=== PATIENT | male | born 1945 | race Caucasian/White ===

== ENCOUNTER 2025-06-08 07:28 | Outpatient (CLI) | payer MEDICARE, MEDICAID, SELFPAY ==
--- NOTE | ~2025-06-08 | PE_ITS ---
EXAMINATION: PET_PETPSMAST_PT DATE: 06/08/2025 10:09 INDICATION: Prostate cancer TECHNIQUE: 4.92 mCi of Illucix Ga-68([id number]) was administered i.v. Low dose computed tomog rachelle (CT) images were acquired from the base of the brain to the base of the brain to the proximal t highs for attenuation correction and anatomic localization. Positron emission tomography (PET) images were acquired in the same distribution beginning 85 minutes after injection. Images including fused PET/CT images were reconstructed in axial, coronal, and sagittal planes. Automated exposure control t [employer] was employed. The dose-length product was 841.52mGy-cm. COMPARISON: None FINDINGS: Head/neck: Typical pattern of symmetric physiologic increased activity in the lacrimal, parotid and submandibula r glands as well as along the mucosa of the nasal and oral cavities, pharynx and hypopharynx. No path ologically enlarged cervical lymphadenopathy or suspicious foci of increased uptake in the visualized head or neck. Atherosclerotic calcifications at the left carotid bulb stenting potential secondary t o carotid endarterectomy at the right carotid bulb. Chest: Mosaic attenuation with groundglass opacities consistent dependent atelectasis in the bilateral lower lungs. Small calcified right lower lobe nodule consistent with old granulomatous disease. No other s uspicious pulmonary nodules, pneumonia, pulmonary edema or pleural effusion. Heart size is normal. At herosclerotic coronary artery calcific location. No pericardial effusion. Thoracic aorta is normal in caliber. No pathologically enlarged or PSMA avid thoracic lymphadenopathy. Abdomen/pelvis/proximal thighs: Physiologic renal accumulation and excretion of activity in the kidneys, bladder and along portions o f ureters. Prostatomegaly measuring 4.6 x 2.8 cm. There is a small focus of moderate increased uptake at the right posterior peripheral zone of the prostate with maximal SUV of 9.6. Normal degree and sl ightly heterogenous pattern of increased uptake throughout the liver and spleen without radiologic co rrelate or dominant PSMA avid lesion. The gallbladder, pancreas and bilateral adrenal glands are norm al. Moderate uptake scattered throughout the bowels with typical duodenal and proximal jejunal predom inance and without radiologic correlate, also likely physiologic. No other abnormal foci of increased uptake or pathologically enlarged lymphadenopathy in the abdomen, pelvis or proximal thighs. Musculoskeletal: Moderate scattered degenerative skeletal changes. No suspicious lytic, blastic or abnormally PSMA alireza d bone lesions. IMPRESSION: 1. Small region of increased uptake in the right peripheral zone of the prostate consistent with prim richard prostate cancer. No evident metastatic disease. Reviewed, dictated and finalized at location A. IMPRESSION: 1. Small region of increased uptake in the right peripheral zone of the prostat e consistent with primary prostate cancer. No evident metastatic disease.
--- OUTSIDE RECORDS SUMMARY | 2025-06-08 07:32 | XMS_ITS ---
Author Organization [facility] Address [address] 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 :1945 A ge:79 Y S ex:Male Date:04/06/2025 Address:[facility] [address] [facility] [place], [id number] Subjective: * Chief Complaints: * * Medical History: Objective: * Vitals: Assessment: Plan: * Treatment: * Billing Information: * Visit Code: * Procedure Codes: * Electronic signature of JAIME MCGINNIS MD on 06/08/2025 at 07:32 AM CDT Sign off status: Pending * Provider: Lisa Mcginnis M.D. Date: 04/06/2025 Generated for Dre hannah/Cameron/Catalina on: 06/08/2025 07:32 AM CDT
--- OUTSIDE RECORDS SUMMARY | 2025-06-08 07:32 | XMS_ITS | Clinical Summary ---
Author Organization [facility] Address [address] [place] [address] Care Team Providers Care Cylinder Tester Name Role Phone Tu Mcginnis MD Primary Care Provider Allergies No known active allergies Medications BD INSULIN SYRINGE U/F 31G X 04/09 1 ML Misc Inject 1 Syringe into the skin 2 (two) times daily. 0 Active Semaglutide (OZEMPIC, 1 MG/DOSE, SC) Inject 2 mg into the skin once a week. Unsure of Dose. Takes 1x weekly on Sundays. Active insulin glargine (LANTUS) 100 UNIT/ML injection (PEN) Inject 63 Units into the skin every morning. 4 Active tamsulosin (FLOMAX) 0.4 MG Cap Take 1 capsule (0.4 mg total) by mouth daily. 4 Active clopidogrel (PLAVIX) 75 MG tablet Take 1 tablet (75 mg total) by mouth daily. 4 11/12/20 25 Active atorvastatin (LIPITOR) 80 MG tablet Take 1 tablet (80 mg total) by mouth nightly at bedtime. 4 Active amLODIPine (NORVASC) 10 MG tablet Take 1 tablet (10 mg total) by mouth daily. 5 Active traZODone (DESYREL) 50 MG tablet Take 1 tablet (50 mg total) by mouth nightly at bedtime. 4 Active bictegravir-emt ricitabine-teno fovir (BIKTARVY) 50-200-25 MG tablet Take 1 tablet by mouth daily. 4 Active gabapentin (NEURONTIN) 300 MG capsule Take 1 capsule (300 mg total) by mouth 3 (three) times daily. 4 Active aspirin 81 MG chewable tablet Chew 1 tablet (81 mg total) by mouth daily. Active ARIPiprazole (ABILIFY) 2 MG tablet Take 1 tablet (2 mg total) by mouth daily. 5 Active Continuous Glucose Sensor (DEXCOM G7 SENSOR) Misc 5 Active FLUoxetine (PROZAC) 20 MG capsule Take 3 capsules (60 mg total) by mouth. 5 Active HYDROcodone-angel taminophen (NORCO) 5-325 MG tabletIndicatio ns:Acute Pain < 7 Day Supply Take 1 tablet by mouth every 6 (six) hours as needed. Indications: Acute Pain < 7 Day Supply 15 tablet 5 Active lidocaine (LIDODERM) 5 %Indications:Ce rvical strain, acute, initial encounter Place 1 patch onto the skin daily for 30 days. Remove & Discard patch within 12 hours or as directed by MD 30 patch 5 06/09/20 25 Active polyethylene glycol (GLYCOLAX) packet Take 240 mLs (17 g total) by mouth daily for 7 days. Dissolve powder in 240 mL water 7 each 5 05/13/20 25 cyclobenzaprine (FLEXERIL) 10 MG tablet Take 1 tablet (10 mg total) by mouth 3 (three) times daily as needed. 15 tablet 5 05/15/20 25 Active Problems Problem Noted Date Diagnosed Date AMS (altered mental status) 11/10/2023 Acute metabolic encephalopathy 01/18/2021 History of melanoma 04/23/2017 History of stroke without residual deficits 02/24 Essential hypertension 07/04/2015 Hyperlipidemia associated wi th type 2 diabetes mellitus ([facility]) 12/07/2011 Major depressive disorder, single episode, moder ate 09/26/2007 Type 2 diabetes mellitus wit h hyperglycemia, with long-term current use of insulin ([facility]) 01/13/2007 Asymptomatic varicose veins 12/05/2006 Osteoarthrosis 12/05/2006 Hypertension Stroke ([facility]) Overview (01/19/2021): no residual Hyperlipidemia MDD (major depressive disorder) Encounters Date Type Department Care Team Description 05/10/2025 7:32 PM CDT - 05/10/2025 9:10 PM CDT Emergency [facility] [place] [address] Ketan Caro MD Shoulder Pain Discharge Disposition: Home or Self Care (Routine Discharge) 05/10/2025 Travel 05/06/2025 4:15 PM CDT - 05/06/2025 5:18 PM CDT [place] [address] Sofía Garcia MD TRANSRECTAL ULTRASOUND GUIDED FUSION PROSTATE BIOPSY 05/06/2025 3:57 PM CDT Anesthesia [place] [address] Jenaro Wagner MD Jackson, Samantha Rae, FNP 05/06/2025 1:04 PM CDT - 05/06/2025 5:35 PM CDT Hospital Encounter [facility] [address] Sofía Garcia MD Discharge Disposition: Home or Self Care (Routine Discharge) 05/06/2025 12:25 PM CDT - 05/06/2025 1:03 PM CDT Hospital Encounter [facility] [address] Sofía Garcia MD Discharge Disposition: Home or Self Care (Routine Discharge) 05/06/2025 Travel 05/06/2025 Prep for Procedure [place] [address] Faisal Lara FNP 04/28/2025 [employer] Message Enc [facility] Pre-Admission Testing [address] [place] [address] [place], [facility] Provider Please call us from Last 3 Months Social History Tobacco Use Types Packs/Day Years Used Date Smoking Tobacco: Former Cigarettes Smokeless Tobacco: Never Tobacco Cessation:Counseling Given: Not Answered Alcohol Use Standard Drinks/Week Comments Not Currently 0 (1 standard drink = 0.6 oz pur e alcohol) rarely [facility] Utilities Answer Date Recorded In the past 12 months has th e electric, gas, oil, or water company threatened to shut off services in your home? No 11/10/2023 Humiliation, Afraid, Rape, and Kick questionnair e Answer Date Recorded Within the last year, have y ou been afraid of your partner or ex-partner? No 11/10/2023 Within the last year, have y ou been humiliated or emotionally abused in other ways by your partner or ex-partner? No Within the last year, have y ou been kicked, hit, slapped, or otherwise physically hurt by your partner or ex-partner? No 11/10/2023 Within the last year, have y ou been raped or forced to have any kind of sexual activity by your partner or ex-partner? No 11/10/2023 Overall Financial Resource Strain (CARDIA) Answe r Date Recorded How hard is it for you to pa y for the very basics like food, housing, medical care, and heating? Not hard at all 11/10/2023 Hunger Vital Sign Answer Date Recorded Within the past 12 months, y ou worried that your food would run out before you got the money to buy more. Never true 11/10/20 Within the past 12 months, t he food you bought just didn't last and you didn't have money to get more. Never true 11/10/2023 PRAPARE - Transportation Answer Date Re corded In the past 12 months, has l ack of transportation kept you from medical appointments or from getting medications? No 10/25 In the past 12 months, has l ack of transportation kept you from meetings, work, or from getting things needed for daily living? No 11/10/2023 Housing Stability Vital Sign Answer Cornelio e Recorded In the last 12 months, was t here a time when you were not able to pay the mortgage or rent on time? No 11/10/2023 In the last 12 months, how many places have you lived? 1 11/10/2023 In the last 12 months, was t here a time when you did not have a steady place to sleep or slept in a half-way (including now)? No 11/10/2023 Sex and Gender Information Value Date Recorded Sex Assigned at Male 05/06/2025 1:00 PM CDT Legal Sex Male 4:44 PM CDT Gender Identity Not on file Sexual Orientation Not on file Last Filed Vital Signs Vital Sign Reading Time Taken Comments Blood Pressure 146/81 05/10/2025 6:46 PM CDT Pulse 96 05/10/2025 6:46 PM CDT Temperature 36.8 C (98.3 F) 05/10/2025 6:46 PM CDT Respiratory Rate 16 05/10/2025 6:46 PM CDT Oxygen Saturation 97% 05/10/2025 6:46 PM CDT Inhaled Oxygen Concentration - - Weight 79.4 kg (175 lb) 05/10/2025 6:46 PM CDT Height 172.7 cm (5' 8) 05/10/2025 6:46 PM CDT Body Mass Index 26.61 05/10/2025 6:46 PM CDT Plan of Treatment Health Maintenance Due Date Last Done Comments Kidney Health Evaluation 1945 Diabetes: Retinopathy Eye Exam 1965 Zoster Vaccines (1 of 2) 1997 DTaP, Tdap and Td Vaccines (1 - Tdap) 03/23/2007 03/22/2007 Annual Medicare Wellness Visit 2012 RSV Immunization or 60+ Years (1 - 1-dose 75+ series) 2022 COVID-19 Vaccine ( - season) 2024 Hemoglobin A1C 08/02/2024 01/31/2024, 10/25, 08/14/2022, Additional history exists Lipid Panel 11/09/2024 11/09/2023, 07/27, 01/26/2021 Pneumococcal Vaccine: 50+ Years Completed 02/28/2016, 11/17/2013 Hepatitis C Completed 09/12/2021 Meningococcal B Vaccine Aged Out No l onger eligible based on patient's age to complete this topic Meningococcal Vaccine Aged Out No lashonda yohan eligible based on patient's age to complete this topic RSV Immunizations Under 20 Months Aged Out No longer eligible based on patient's age to complete this topic Goals Goal Patient Goal Type Associated Problems Recent Progress Patient-Stated? Author Health - patient able to perform ADLs independently General Marie Jama, biology specimen technician Procedure Name Priority Date/Time Associated Diagnosis Comments XR SHOULDER LT MIN 2V STAT 05/10/2025 8:12 PM CDT XR CERV SPINE CLEAR 3V STAT 05/10/2025 8:12 PM CDT POCT GLUCOSE - DOCKED DEVICE Routine 05/06/2025 4:42 PM CDT POCT GLUCOSE - DOCKED DEVICE Routine 05/06/2025 4:29 PM CDT BIOPSY OF PROSTATE,NEEDLE/PUN CH 05/06/2025 3:57 PM CDT ELEVATED PROSTATE SPECIFIC ANTIGEN, LESION OF BLADDER R97.20, N32.9 Case Notes SCHED BY FAX 04/23/2025 [facility] PHONE ASSESS Special Needs [facility] # [id number] FAX ORDER DR NEEDS 30 MINUTES POCT GLUCOSE - DOCKED DEVICE Routine 05/06/2025 2:03 PM CDT ECG 12-LEAD STAT 05/06/2025 1:37 PM CDT Preop examination BASIC METABOLIC PANEL STAT 05/06/2025 1:14 PM CDT Preop examination CBC W/DIFF AUTOMATED STAT 05/06/2025 1:14 PM CDT Preop examination HC URINALYSIS AUTO W/O MICRO STAT 05/06/2025 1:10 PM CDT Preop examination Elevated PSA Lesion of bladder PATHOLOGY Routine 05/06/2025 12:00 AM CDT LIPID PANEL Routine 11/09/2023 9:00 PM PIPE PULLER HEMOGLOBIN, GLYCOSYLATED Routine 11/09/2023 9:00 PM PIPE PULLER from Last 3 Months or Most Recently Relevant to Health Maintenance Results * XR C-SPINE CLEAR 3V (05/10/2025 8:12 PM CDT) Anatomical Region Laterality Modality Spine Radiographic Rowena ging 05/10/2025 8:17 PM CDT Impressions 05/10/2025 8:20 PM CDT IMPRESSION: 1. No acute abnormality identified. 2. Degenerative changes as described. 3. Incomplete visualization C7 vertebra. Ordered By: KETAN CARO Interpreted By: Deandre Elizalde MD, 05/10/2025 8:17 PM Narrative 05/10/2025 8:[address] [address] Examination: XR CERV SPINE CLEAR 3V Exam time: 05/10/2025 7:47 PM Clinical history: Pain Comparison: No prior exam Technique: AP, lateral, and odontoid views Findings: No evidence of prevertebral soft tissue swelling. Odontoid process is not well visualized on the odontoid view, although, appears unremarkable on the lateral view. Occiput C1 and C1-2 relationships appear unremarkable. There is minimal anterolisthesis of C4 on C5. Mild to moderate decrease intervertebral disc height C5-6 level with moderate anterior and posterior vertebral body endplate spurring. C7 vertebra is partially visualized secondary to shoulder attenuation. C7-T1 relationship appears unremarkable on the AP view, although, C7-T1 relationship is not visualized on lateral view secondary to shoulder attenuation. If further imaging evaluation is desired, CT could be considered. Carotid vascular stent is visualized on the right. No evidence of fracture or acute osseous abnormality on the visualized cervical spine. Procedure Note Deandre Elizalde MD - 05/10/2025 [facility] [address] [place], [place] [address] Examination: XR CERV SPINE CLEAR 3V Exam time: 05/10/2025 7:47 PM Clinical history: Pain Comparison: No prior exam Technique: AP, lateral, and odontoid views Findings: No evidence of prevertebral soft tissue swelling. Odontoid process is not well visualized on the odontoid view, although,appears unremarkable on the lateral view. Occiput C1 and C1-2relationships appear unremarkable. There is minimal anterolisthesis of C4 on C5. Mild to moderate decrease intervertebral disc height C5-6 level withmoderate anterior and posterior vertebral body endplate spurring. C7 vertebra is partially visualized secondary to shoulder attenuation.C7-T1 relationship appears unremarkable on the AP view, although, [id number] is not visualized on lateral view secondary to shoulderattenuation. If further imaging evaluation is desired, CT could beconsidered. Carotid vascular stent is visualized on the right. No evidence of fracture or acute osseous abnormality on the visualizedcervical spine. IMPRESSION: 1. No acute abnormality identified. 2. Degenerative changes as described. 3. Incomplete visualization C7 vertebra. Ordered By: KETAN CARO Interpreted By: Deandre Elizalde MD, 05/10/2025 8:17 PM us Ketan Caro MD GENERAL IMAGING Final Result * XR SHOULDER LT MIN 2V (05/10/2025 8:12 PM CDT) Anatomical Region Laterality Modality Shoulder Radiographic Rowena ging 05/10/2025 8:14 PM CDT Impressions 05/10/2025 8:15 PM CDT IMPRESSION: No radiographic abnormality. Ordered By: KETAN CARO Interpreted By: Deandre Elizalde MD, 05/10/2025 8:14 PM Narrative 05/10/2025 8:15 PM CDT [facility] [address] [place], [place] [address] Examination: XR SHOULDER LT MIN 2V Exam time: 05/10/2025 7:47 PM Clinical history: Pain Comparison: No prior exam Technique: 2 views Findings: Glenohumeral and acromioclavicular joint relationships appear unremarkable. No evidence of significant degenerative change. No evidence of fracture or acute osseous abnormality. No evidence of abnormal soft tissue densities. Procedure Note Deandre Elizalde MD - 05/10/2025 [facility] [address] [place], [place] [address] Examination: XR SHOULDER LT MIN 2V Exam time: 05/10/2025 7:47 PM Clinical history: Pain Comparison: No prior exam Technique: 2 views Findings: Glenohumeral and acromioclavicular joint relationships appearunremarkable. No evidence of significant degenerative change. No evidenceof fracture or acute osseous abnormality. No evidence of abnormal softtissue densities. IMPRESSION: No radiographic abnormality. Ordered By: KETAN CARO Interpreted By: Deandre Elizalde MD, 05/10/2025 8:14 PM us Ketan Caro MD GENERAL IMAGING Final Result * (ABNORMAL) POCT glucose (05/06/2025 4:42 PM CDT) Only the most recent of3 resultswithin the time period is included. GLUCOSE POC 211(H) 70 - 99 mg/dL 05/06/2025 4:44 PM CDT [facility] 05/06/2025 4:42 PM CDT us Sofía Garcia MD POCT ORDERABLES - DEVIC E Final Result [facility] [address] [place] [address], * ECG 12 lead (05/06/2025 1:37 PM CDT) 05/06/2025 1:[address] [facility] ([facility] - 05/06/2025 8:[address] 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: PATRICANG : 1945 Requested By: FAISAL LARA Order Number: [id number] Reading CORI Mason Measurements Intervals Xenia Rate: 66 P: 80 OH: 183 QRS: 21 QRSD: 93 T: 66 QT: 388 QTc: 407 Interpretive Statements SINUS RHYTHM Compared to ECG 11/09/2023 20:56:13 T-wave abnormality no longer present Faisal Lara BALLAST REGULATOR OPERATOR ECG ORDERABLES Final R esult [facility] * (ABNORMAL) BASIC METABOLIC PANEL (05/06/2025 1:14 PM CDT) [facility] GLUCOSE 78 70 - 99 MG/DL 05/06/2025 1:56 PM CDT [facility] BUN 23(H) 7 - 18 MG/DL 05/06/2025 1:56 PM CDT [facility] CREATININE S/P/B 1.40(H) 0.7 - 1.3 MG/DL 05/06/2025 1:56 PM CDT [facility] SODIUM S/P/B 141 136 - 145 MMOL/L 05/06/2025 1:56 PM CDT [facility] POTASSIUM S/P/B 4.0 3.5 - 5.1 MMOL/L 05/06/2025 1:56 PM CDT [facility] CHLORIDE S/P/B 108 97 - 115 MMOL/L 05/06/2025 1:56 PM CDT [facility] CO2 28.0 21 - 32 MMOL/L 05/06/2025 1:56 PM T [facility] CALCIUM S/P/B 9.5 8.5 - 10.1 MG/DL 05/06/2025 1:56 PM CDT [facility] ANION GAP 5.0 2 - 10 MMOL/L 05/06/2025 1:56 PM CDT [facility] BUN CREATININE RATIO 16.4 6 - 26 05/06/2025 1:56 PM T [facility] GFR ESTIMATE 52(L) >90 ML/MIN/1.7 3 M2 05/06/2025 1:56 PM T [facility] Comment: NOTE: eGFR is not calculated for patients <18 years of age or gender unknown. This is an estimated GFR calculation using the new CKD EPI creatinine equation without race and so does not require a correction factor for race. This estimated GFR should not be used for calculating drug doses. 05/06/2025 1:14 PM CDT Faisal Lara BALLAST REGULATOR OPERATOR LABORATORY Final R esult [facility] [address] [place] [address], * (ABNORMAL) CBC W/DIFF AUTOMATED (05/06/2025 1:14 PM CDT) WBC 9.23 4.5 - 11.0 x10'3/uL 05/06/2025 1:34 PM CDT [facility] RBC 4.41(L) 4.70 - 6.10 x10'6/uL 05/06/2025 1:34 PM CDT [facility] HGB 14.2 14.0 - 18.0 G/DL 05/06/2025 1:34 PM CDT [facility] HCT 41.9(L) 43.0 - 54.0 % 05/06/2025 1:34 PM CDT [facility] MCV 95.0(H) 80.0 - 94.0 FL 05/06/2025 1:34 PM CDT [facility] MCH 32.2(H) 27.0 - 31.0 PG 05/06/2025 1:34 PM CDT [facility] MCHC 33.9 32.0 - 36.0 G/DL 05/06/2025 1:34 PM CDT [facility] RDW 13.2 11.5 - 14.5 % 05/06/2025 1:34 PM CDT [facility] PLT 181 130 - 400 x10'3/uL 05/06/2025 1:34 PM CDT [facility] MPV 11.3 9.3 - 12.2 FL 05/06/2025 1:34 PM CDT [facility] DIFFERENTIAL TYPE AUTOMATED DIFFERENTIAL 05/06/2025 1:34 PM CDT [facility] NEUTROPHILS % 55.9 % 05/06/2025 1:34 PM CDT [facility] LYMPHOCYTES % 29.0 % 05/06/2025 1:34 PM CDT [facility] MONOCYTES % 10.0 % 05/06/2025 1:34 PM CDT [facility] EOSINOPHILS 4.3 % 05/06/2025 1:34 PM CDT [facility] BASOPHILS 0.5 % 05/06/2025 1:34 PM CDT [facility] IMMATURE GRANS % 0.3 % 05/06/20 1:34 PM CDT [facility] ABS. NEUTROPHILS 5.15 1.80 - 7.70 x10'3/uL 05/06/2025 1:34 PM CDT [facility] ABS. LYMPHOCYTES 2.68 1.00 - 4.80 x10'3/uL 05/06/2025 1:34 PM CDT [facility] ABS. MONOCYTES 0.92(H) 0.30 - 0.82 x10'3/uL 05/06/2025 1:34 PM CDT [facility] ABS. EOSINOPHILS 0.40 0.04 - 0.54 x10'3/uL 05/06/2025 1:34 PM CDT [facility] ABS. BASOPHILS 0.05 0.01 - 0.08 x10'3/uL 05/06/2025 1:34 PM CDT [facility] ABS. IMMATURE GRANULOCYTES 0.03 0.00 - 0.49 x10'3/uL 05/06/2025 1:34 PM CDT [facility] 05/06/2025 1:14 PM CDT Faisal Lara BALLAST REGULATOR OPERATOR LABORATORY Final R esult [facility] [address] [place] [address], * (ABNORMAL) URINALYSIS (05/06/2025 1:10 PM CDT) SPECIMEN TYPE URINE CLEAN CATCH 05/06/2025 1:04 PM CDT [facility] COLOR (U) YELLOW 05/06/2025 1:37 PM CDT [facility] TRANSPARENCY CLEAR 05/06/2025 1:37 PM CDT [facility] SPECIFIC GRAVITY (U) 1.019 1.001 - 1.030 05/06/2025 1:37 PM CDT [facility] U PH 6.0 5.0 - 9.0 05/06/2025 1:37 PM CDT [facility] LEUKOCYTES (U) NEGATIVE NEGATIVE 05/06/2025 1:37 PM CDT [facility] NITRITES NEGATIVE NEGATIVE 05/06/2025 1:37 PM CDT [facility] PROTEIN RANDOM (U) NEGATIVE <30 MG/DL 05/06/2025 1:37 PM CDT [facility] GLUCOSE (U) 200(A) NORMAL MG/DL 05/06/2025 1:37 PM CDT [facility] KETONES MG/DL (U) NEGATIVE NEGATIVE MG/DL 05/06/2025 1:37 PM CDT [facility] UROBILINOGEN NORMAL NORMAL MG/DL 05/06/2025 1:37 PM CDT [facility] BILIRUBIN (U) NEGATIVE NEGATIVE MG/DL 05/06/2025 1:37 PM CDT [facility] BLOOD (U) NEGATIVE NEGATIVE 05/06/2025 1:37 PM CDT [facility] URINE SPECIMEN OBTAINED BY CLEAN CATCH PROCEDURE / Unknown 05/06/2025 1:10 PM CDT Sofía Garcia MD URINE ORDERABLES Final Result [facility] [address] [place] [address], * Pathology (05/06/2025 12:00 AM CDT) PATHOLOGY [facility] Department of Laboratory Medicine [address] [place] [id number] , extension [phone] Pathology Report Surgical Pathology Report Name: ELDER SACNHEZ Specimen #: [id number] Age: 2 1945 (Age: 79) Location: [facility] Sex: M Procedure Date: 05/06/2025 Hospital #: [id number] Date Received: 05/07/2025 Date Reported: 05/11/2025 Provider: SOFÍA GARCIA MD Source: A: Prostate, CHAI #1, needle biopsy B: Prostate, right lateral base, needle biopsy C: Prostate, right medial base, needle biopsy D: Prostate, right lateral mid, needle biopsy E: Prostate, right medial mid, needle biopsy F: Prostate, right lateral apex, needle biopsy G: Prostate, right medial apex, needle biopsy H: Prostate, left lateral base, needle biopsy I: Prostate, left medial base, needle biopsy J: Prostate, left lateral mid, needle biopsy K: Prostate, left medial mid, needle biopsy L: Prostate, left lateral apex, needle biopsy M: Prostate, left medial apex, needle biopsy Clinical History: Elevated PSA and lesion of bladder. FINAL DIAGNOSIS: A. 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 B. Prostate, right lateral base, core biopsies: - Acinar adenocarcinoma, grade group 2 (Netta score 3+4=7, with 30% pattern 4) involving 1 of 2 cores and 10% of tissue submitted. - See comment. C. Prostate, right medial base, core biopsy: - Benign prostatic parenchyma. D. Prostate, right lateral mid, core biopsy: - Acinar adenocarcinoma, grade group 3 (Republic score 4+3=7, with 70% pattern 4) involving 30% of a single core. E. Prostate, right medial mid, core biopsy: - Benign prostatic parenchyma. F. Prostate, right lateral apex, core biopsy: - Benign prostatic parenchyma. G. Prostate, right medial apex, core biopsy: - Benign prostatic parenchyma. H. Prostate, left lateral base, core biopsy: - Benign prostatic parenchyma. I. Prostate, left medial base, core biopsy: - Benign prostatic parenchyma. J. Prostate, left lateral mid, core biopsy: - Benign prostatic parenchyma. K. Prostate, left medial mid, core biopsy: - Benign prostatic parenchyma. L. Prostate, left lateral apex, core biopsy: - Benign prostatic parenchyma. M. Prostate, left medial apex, core biopsy: - Benign prostatic parenchyma. Diagnosis Comment: Immunohistochemical triple stain for AMACR/high molecular keratin/p63 was performed on specimen B to confirm the diagnosis. The atypical glands of interest show AMACR expression and lack basal cells by high molecular keratin/p63 in keeping with acinar adenocarcinoma. Gross Description: A. Received in formalin, labeled with a patient label and as CHAI #1 are 4 less than 0.1 cm in diameter delicate white-davis tissue cores that range from 0.5 to 0.8 cm in length. The specimen is entirely submitted in cassette A1. B. Received in formalin, labeled with a patient label and as right lateral base are 2 less than 0.1 cm in diameter delicate white-davis tissue cores each 0.7 cm in length. The specimen is entirely submitted in cassette B1. C. Received in formalin, labeled with a patient label and as right medial base is a single less than 0.1 cm in diameter delicate white-davis tissue core that is 1.5 cm in length. The specimen is entirely submitted in cassette C1. D. Received in formalin, labeled with a patient label and as right lateral mid is a single less than 0.1 cm in diameter delicate white-davis tissue core that has a length of 1.5 cm. The specimen is entirely submitted in cassette D1. E. Received in formalin, labeled with a patient label and as right medial mid is a single less than 0.1 cm in diameter delicate white-davis tissue core that has a length of 1.3 cm. The specimen is entirely submitted in cassette E1. F. Received in formalin, labeled with a patient label and as right lateral apex is a single less than 0.1 cm in diameter delicate white-davis tissue core that has a length of 1.0 cm. The specimen is entirely submitted in cassette F1. G. Received in formalin, labeled with a patient label and as right medial apex are 2 less than 0.1 cm in diameter delicate white-davis tissue cores 1.0 and 0.4 cm in length. The specimen is entirely submitted in cassette G1. H. Received in formalin, labeled with a patient label and as left lateral base are 3 less than 0.1 cm in diameter delicate white-davis tissue cores that range from 0.3 to 0.7 cm in length. The specimen is entirely submitted in cassette H1. I. Received in formalin, labeled with a patient label and as left medial base are 2 less than 0.1 cm in diameter delicate white-davis tissue cores 0.3 and 1.0 cm in length. The specimen is entirely submitted in cassette I1. J. Received in formalin, labeled with a patient label and as left lateral mid are 2 less than 0.1 cm in diameter delicate white-davis tissue cores 0.3 and 1.3 cm in length. The specimen is entirely submitted in cassette J1. K. Received in formalin, labeled with a patient label and as left medial mid is a single less than 0.1 cm in diameter delicate white-davis tissue core that has a length of 1.7 cm. The specimen is entirely submitted in cassette K1. L. Received in formalin, labeled with a patient label and as left lateral apex are 2 less than 0.1 cm in diameter delicate white-davis tissue cores 0.5 and 0.7 cm in length. The specimen is entirely submitted in cassette L1. M. Received in formalin, labeled with a patient label and as left medial apex are 2 less than 0.1 cm in diameter delicate white-davis tissue cores 0.3 and 1.0 cm in length. The specimen is entirely submitted in cassette M1. Gross examination (when applicable), interpretation, and sign out were performed at [facility], [address] [place] [address]. All immunohistochemical and histochemical tests were developed by and performed at [facility], [address] [place] [address]. All tests reported here have not been cleared or approved by the U.S. Food and Drug Administration (FDA). This laboratory is regulated under CLIA as qualified to perform high-complexity testing. These tests are used for clinical purposes. They should not be regarded as investigational or for research. Positive and negative controls show appropriate reactivity. Electronically Signed Out TALON LANIER MD [facility] TISSUE PROSTATE / Unknown 1:07 PM CDT Tissue specimen (specimen) PROSTATE / Unknown 05/06/2025 1:07 PM CDT Tissue specimen (specimen) PROSTATE / Unknown 05/06/2025 1:07 PM CDT Tissue specimen (specimen) PROSTATE / Unknown 05/06/2025 1:07 PM CDT Tissue specimen (specimen) PROSTATE / Unknown 05/06/2025 1:07 PM CDT Tissue specimen (specimen) PROSTATE / Unknown 05/06/2025 1:07 PM CDT Tissue specimen (specimen) PROSTATE / Unknown 05/06/2025 1:07 PM CDT Tissue specimen (specimen) PROSTATE / Unknown 05/06/2025 1:07 PM CDT Tissue specimen (specimen) PROSTATE / Unknown 05/06/2025 1:07 PM CDT Tissue specimen (specimen) PROSTATE / Unknown 05/06/2025 1:07 PM CDT Tissue specimen (specimen) PROSTATE / Unknown 05/06/2025 1:07 PM CDT Tissue specimen (specimen) PROSTATE / Unknown 05/06/2025 1:07 PM CDT Tissue specimen (specimen) PROSTATE / Unknown 05/06/2025 1:07 PM CDT us Sofía Garcia MD PATHOLOGY/CYTOLOGY JOEY MATA Final Result [facility] [address] [place] [address], [place] [phone] [id number] * (ABNORMAL) HEMOGLOBIN, GLYCATED (11/09/2023 9:00 PM PIPE PULLER) HGB A1C 8.8(H) <5.7 % 11/10/2023 1:33 AM [facility] Comment: ADA GUIDELINES 2010 5.7 TO 6.4% INCREASED RISK OF DIABETES > OR = 6.5% CONSISTENT WITH DIABETES ESTIMATED AVG GLUCOSE 206 mg/dL 11/10/2023 1:33 AM [facility] 11/09/2023 9:00 PM PIPE PULLER Fiona Gilmore DO LABORATORY Final Result [facility] [address] [place] [address], * (ABNORMAL) LIPID PANEL (11/09/2023 9:00 PM PIPE PULLER) CHOLESTEROL 161 <200 MG/DL 11/10/2023 1:24 AM [facility] TRIGLYCERIDES 101 <150 MG/DL 11/10/2023 1:24 AM [facility] HDL 38(L) >40.0 MG/DL 11/10/2023 1:24 AM [facility] LDL (CALCULATED) 103(H) <100 MG/DL 11/10/2023 1:24 AM [facility] NON HDL CHOLESTEROL 123 <130 MG/DL 11/10/2023 1:24 AM [facility] CHOL/HDL RATIO 4.2 0.0 - 4.5 11/10/2023 1:24 AM [facility] VLDL CALCULATION 20 5 - 55 MG/DL 11/10/2023 1:24 AM [facility] LIPID INTERPRETATION 11/10/2023 1:24 AM [facility]IPE [facility] Comment: NIH CONCENSUS REPORT RECOMMENDATIONS: ADULT CHILD LOW RISK: CHOLESTEROL <200 <170 TRIGLYCERIDE <150 --- HDL >=60 --- LDL <100 <110 BORDERLINE: CHOLESTEROL 200-239 170-199 TRIGLYCERIDE 150-199 --- HDL 40-59 --- LDL 100-159 110-129 HIGH RISK: CHOLESTEROL >=240 >=200 TRIGLYCERIDE >=200 --- HDL <40 --- LDL >=160 >=130 11/09/2023 9:00 PM PIPE PULLER Fiona Gilmore DO LABORATORY Final Result [facility] [address] [place] [address], from Last 3 Months or Most Recently Relevant to Health Maintenance Insurance AETNA Advance Directives * Full Code (Latest Code Status on File) Date Activated Date Inactivated Comments 11/10/2023 1:44 PM 11/11/2023 6:30 PM * Full Code Date Activated Date Inactivated Comments 01/18/2021 2:35 PM 01/20/2021 2:46 PM Care Teams Cylinder Tester Relationship Specialty Start Date End Date Tu Mcginnis MD [address] [address] PCP - General Internal Medicine - Infectious Disease 05/06/25
--- OUTSIDE RECORDS SUMMARY | 2025-06-08 07:32 | XMS_ITS ---
Author Organization [facility] Address [address] [address] Care Team Providers Care Biologist Aide Name Role Phone Provider, Outside Primary Care Provider Enrollments Status:Enrolled Start date:10/17/2023 Related service episodes:Food Pantry Service () Continued Care and Services Coordination
--- OUTSIDE RECORDS SUMMARY | 2025-06-08 07:32 | XMS_ITS | Clinical Summary ---
Author Organization [facility] Address [address] [place] [address] Care Team Providers Care Fourth Grade Teacher Name Role Phone Provider, Outside Primary Care Provider [phone] Source Comments PLEASE NOTE, if this patient is a minor, it may be UNLAWFUL to discuss sensitive information that is contained in these records (such as FAMILY PLANNING, MENTAL HEALTH or SUBSTANCE ABUSE) with the minor patient's parent or other person without the patient's specific authorization.[facility] Allergies No known active allergies Medications tadalafiL (CIALIS) 20 mg tablet Take 1 tablet by mouth once daily as needed for erectile dysfunction 6 Tablet 3 2 8:20 AM PST 08/14/20 22 Active testosterone (TESTIM) 50 mg/5 gram (1 %) gel Place onto the skin 08/14/20 22 Active loperamide (IMODIUM A-D) 2 mg capsule Take 1 capsule by mouth 4 (four) times daily as needed for diarrhea 30 Capsule 1 2 12:58 PM PDT 08/23/20 22 Active hydrOXYzine HCL (ATARAX) 25 mg tablet TAKE ONE TABLET BY MOUTH TWICE DAILY 60 Tablet 3 3 9:19 AM PST 10/11/20 22 Active tadalafiL (CIALIS) 5 mg tablet Take 1 tablet by mouth once daily as needed 30 Tablet 3 3 11:19 AM PST 02/13/20 23 Active doxycycline (VIBRAMYCIN) 100 mg capsule Take 1 capsule by mouth twice a day for 7 days. 14 Capsule 3 11:34 AM PDT 02/15/20 23 Active polyethylene glycol, PEG, 3350 (GLYCOLAX) 17 gram/dose powder Take 17 g by mouth once daily 510 g 3 10/14/20 23 Active semaglutide (OZEMPIC) 1 mg/dose (4 mg/3 mL) pen injector INJECT 1 MG UNDER THE SKIN EVERY WEEK 3 mL 3 4 12:45 PM PDT 04/09/20 24 Active pen needle, diabetic (BD ULTRA-FINE HOWIE PEN NEEDLE) 32 gauge x 5/32 ndle USE DIRECTED FOR INSULIN INJECTIONS 100 Each 3 5 1:13 PM PDT 09/01/20 24 Active semaglutide (OZEMPIC) 2 mg/dose (8 mg/3 mL) pen injector Inject 2 mg subcutaneously once a week 3 mL 3 5 1:35 PM PST 09/21/20 24 Active glucagon (GVOKE HYPOPEN 2-PACK) 1 mg/0.2 mL atIn INJECT 1 MG UNDER THE SKIN NEEDED FOR SEVERE HYPOGLYCEMIA. MAY REPEAT IN 15 MINS IF NEEDED WITH NEW DEVICE 0.6 mL 3 4 12:28 PM PST 09/22/20 24 Active insulin glargine (BASAGLAR KWIKPEN U-100 INSULIN) 100 unit/mL (3 mL) pen Inject 64 units by subcutaneous route daily 15 mL 1 4 1:22 PM PST 10/16/20 24 Active tamsulosin (FLOMAX) 0.4 mg 24 hr capsule Take 1 Capsule by mouth daily. 30 Capsule 3 10/26/20 24 Active insulin glargine 100 unit/mL (3 mL) pen Inject 64 Units into the skin daily. 30 mL 3 5 1:13 PM PDT 10/26/20 24 Active atorvastatin (LIPITOR) 80 mg tablet TAKE 1 TABLET (80MG TOTAL) BY MOUTH DAILY 30 Tablet 5 12:21 PM PDT 11/12/20 24 Active clopidogreL (PLAVIX) 75 mg tablet TAKE 1 TABLET (75 MG TOTAL) BY MOUTH DAILY 30 Tablet 11 5 12:21 PM PDT 11/12/20 24 Active doxycycline (VIBRAMYCIN) 100 mg capsule Take 2 capsules by mouth within 24-72 hours after un-protected sexual intercourse with full glass of water. Do not exceed more than once daily. 30 Capsule 3 5 12:18 PM PDT 11/13/20 24 Active ARIPiprazole (ABILIFY) 2 mg tablet TAKE ONE TABLET BY MOUTH ONCE DAILY 30 Tablet 3 5 12:21 PM PDT 02/16/20 25 Active bictegrav-emtr icit-tenofov ala (BIKTARVY) 50-200-25 mg tab TAKE ONE TABLET BY MOUTH ONCE DAILY 30 Tablet 5 5 12:21 PM PDT 02/16/20 25 Active tamsulosin (FLOMAX) 0.4 mg 24 hr capsule TAKE ONE CAPSULE BY MOUTH ONCE DAILY 30 Capsule 5 5 12:21 PM PDT 02/16/20 25 Active amLODIPine (NORVASC) 10 mg tablet TAKE 1 TABLET BY MOUTH ONCE A DAY 90 Tablet 3 5 12:21 PM PDT 03/04/20 25 Active tadalafiL (CIALIS) 20 mg tablet TAKE 1 TABLET BY MOUTH ONCE DAILY NEEDED 6 Tablet 3 5 8:56 AM PDT 03/15/20 25 Active semaglutide (OZEMPIC) 2 mg/dose (8 mg/3 mL) pen injector INJECT 2 MG UNDER THE SKIN EVERY 7 DAYS 3 mL 2 5 12:21 PM PDT 04/13/20 25 Active FLUoxetine (PROZAC) 20 mg capsule TAKE 3 CAPSULES BY MOUTH EVERY MORNING 90 Capsule 1 5 12:21 PM PDT 04/12/20 25 Active sulfamethoxazo le-trimethopri m (BACTRIM DS) 800-160 mg per tablet TAKE 1 TABLET BY MOUTH TWICE DAILY 20 Tablet 5 8:56 AM PDT 04/13/20 25 Active polyethylene glycol, PEG, 3350 (MIRALAX) 17 gram packet DISSOLVE 17 G OF POWDER IN 240 ML OF WATER AND TAKE BY MOUTH DAILY FOR 7 DAYS. 7 Each 05/06/20 25 Active gabapentin (NEURONTIN) 300 mg capsule Take 1 Capsule by mouth 3 (three) times daily 90 Capsule 1 5 12:21 PM PDT 05/18/20 25 Active traZODone (DESYREL) 50 mg tablet Take 1 Tablet by mouth nightly at bedtime as needed 30 Tablet 3 5 12:21 PM PDT 05/18/20 25 Active pravastatin (PRAVACHOL) 40 mg tablet TAKE ONE TABLET BY MOUTH ONCE DAILY 90 Tablet 2 3 12:56 PM PST 07/09/20 23 024 Discontin ued(Quant ity/Dosag e and/or Sig change) losartan (COZAAR) 100 mg tablet TAKE ONE TABLET BY MOUTH ONCE DAILY 90 Tablet 1 5 1:35 PM PST 09/07/20 24 025 Discontin ued(Thera py completed /Not needed) traZODone (DESYREL) 50 mg tablet Take 1 Tablet by mouth nightly at bedtime as needed 30 Tablet 3 5 8:56 AM PDT 01/12/20 25 025 Discontin ued(Reord er (E-Cancel Not Sent)) gabapentin (NEURONTIN) 300 mg capsule Take 1 Capsule by mouth 3 (three) times daily 90 Capsule 1 5 8:56 AM PDT 10/26/20 24 025 Discontin ued(Reord er (E-Cancel Not Sent)) Active Problems Problem Noted Date Diagnosed Date DDD (degenerative disc disease), cervical 2021 Benign prostatic hyperplasia with urinary freque ncy 05/10/2022 Methamphetamine abuse ([facility]) 05/10/2022 Hypogonadism in male 02/06/2022 Moderate episode of recurren t major depressive disorder ([facility]) 02/06/2022 Hyperlipidemia 09/12/2021 Human immunodeficiency virus (HIV) disease ([facility]) 09/12/2021 History of melanoma 04/23/2017 Essential hypertension 07/04/2015 Type 2 diabetes mellitus wit h hyperglycemia, with long-term current use of insulin ([facility]) 01/13/2007 Immunizations Immunization Administration Dates Next Due Flu, High Dose, 65y+, Fluzon e High Dose 08/30/2022,10/12/2021 Flu, Multi Dose 0.5 ML 08/15/2020 Hep A, adult 05/10/2022,10/12/2021 Hep B,adult,adjuvanted (HEPLISAV) 05/10/2022, Influenza (FLUZONE), high-do se, trivalent, PF 11/16/2019,01/20/2019,10/01/2017,07/27 PNEUMOCOCCAL CONJUGATE PCV 13 11/17/2013 PNEUMOCOCCAL POLYSACCHARIDE PPV23 (Pneumovax 23) 02/28/2016 Td (adult),2 Lf tetanus toxo id (TDVAX), preservative free 03/22/2007 Family History Medical History Relation Name Comments Heart attack Father Diabetes Mother Relation Name Status Comments Father Mother Social History Tobacco Use Types Packs/Day Years Used Date Smoking Tobacco: Former Cigarettes Passive Smoke Exposure: Current Smokeless Tobacco: Never Tobacco Cessation:Counseling Given: No Alcohol Use Standard Drinks/Week Comments Not Currently 0 (1 standard drink = 0.6 oz pur e alcohol) socailly Social Connections Answer Date Recorded Connectedness 0 08/06/2024 Financial Resource Strain Answer Date R ecorded Financial Resource Strain 0 2020 Stress Answer Date Recorded Stress 0 09/12/2021 Physical Activity Answer Date Recorded Physical Activity 0 09/12/2021 Food Insecurity Answer Date Recorded Food 0 08/20/2024 Transportation Needs Answer Date Record ed Transportation 0 09/12/2021 Housing Stability Answer Date Recorded Housing 0 09/12/2021 Safety and Environment Answer Date Richi rded Safety 0 09/12/2021 Utilities Answer Date Recorded Utilities 0 09/12/2021 Employment Answer Date Recorded Stress 0 08/06/2024 Sex and Gender Information Value Date Recorded Sex Assigned at Not on file Legal Sex Male 12:32 PM PDT Gender Identity Male 04/10/2022 7:20 AM PDT Sexual Orientation Not on file Last Filed Vital Signs Vital Sign Reading Time Taken Comments Blood Pressure 113/60 10/21/2023 2:03 PM SILK PRINTER Pulse 67 10/21/2023 2:03 PM SILK PRINTER Temperature 36.5 C (97.7 F) 10/21/2023 2:03 PM SILK PRINTER Respiratory Rate - - Oxygen Saturation 98% 10/11/2022 2:22 PM SILK PRINTER Inhaled Oxygen Concentration - - Weight 78 kg (172 lb) 10/11/2022 2:22 PM SILK PRINTER Height 170.2 cm (5' 7) 08/30/2022 3:31 PM CDT Body Mass Index 26.94 08/30/2022 3:31 PM CDT Plan of Treatment Health Maintenance Due Date Last Done Comments Dental Prophy 1947 Diabetes Foot Exam 1947 Tobacco Screening 1947 Imm-Meningococcal (1 - Risk 2-dose series) 1949 Retinopathy Screening 1960 Medicare Annual Wellness Visit 1965 Imm-Zoster, Recombinant (1 of 2) 1966 Imm-DTaP/Tdap/Td (1 - Tdap) 03/23/2007 03/22/2007 Falls Prevention 2012 Depression Monitoring 01/12/2022 10/12/2021 Urine Albumin Creatinine Ratio Screening 01/26/2022 01/26/2021 Imm-RSV (adult) (1 - 1-dose 75+ series) 2022 Hemoglobin A1c 02/08/2024 11/09/2023, 10/25, 08/14/2022, Additional history exists [id number] (2023- season) 2024 Dental BW 10/23/2024 10/21/2023, 03/25, 04/03/2022 Dental Examination 10/23/2024 10/21/2023, 04/03/2022 Dental Perio Charting 10/23/2024 10/21/2023, 022 Lipid Screening 11/09/2024 11/09/2023, 07/27, 05/10/2022, Additional history exists Serum Creatinine 11/11/2024 11/11/2023, , 07/31/2023, Additional history exists Alcohol and Drug Screen 11/25/2024 Imm-Influenza (#1) 2025 08/30/2022, 1 12/12/2020, 08/15/2020, Additional history exists Dental FMX/Pano 10/23/2028 10/21/2023, 09/26, 04/03/2022, Additional history exists Imm-Pneumococcal 50+ Completed 02/28/2016, 11/17/20 13 Colonoscopy Discontinued 11/25/2018 Colorectal Cancer Screening Discontinued Hepatitis C Screening Completed 09/12/2021 Imm-Hepatitis A Completed 05/10/2022, 10/12/2021 Imm-Hepatitis B Completed 05/10/2022, 10/12/2021 CT Colonography Discontinued FIT/gFOBT Discontinued Fecal DNA Discontinued Flexible Sigmoidoscopy Discontinued Imm-HIB Aged Out No longer eligi ble based on patient's age to complete this topic Procedures Procedure Name Priority Date/Time Associated Diagnosis Comments COMP PERIODONTAL EVALUATION - NEW/EST PATIENT Routine 10/21/2023 1:30 PM SILK PRINTER Dental caries on smooth surface limited to enamel Retained tooth root Excessive attrition of teeth, localized Stage 2 grade B localized periodontitis per AAP/EFP 2017 classification Stage 1 grade B generalized periodontitis per AAP/EFP 2017 classification INTRAORAL - COMP SERIES OF RADIOGRAPHIC IMAGES Routine 10/21/2023 1:30 PM SILK PRINTER Dental caries on smooth surface limited to enamel Retained tooth root Excessive attrition of teeth, localized Stage 2 grade B localized periodontitis per AAP/EFP 2017 classification Stage 1 grade B generalized periodontitis per AAP/EFP 2017 classification COMP ORAL EVALUATION - NEW/ESTABLISHED PATIENT Routine 10/21/2023 1:30 PM SILK PRINTER Dental caries on smooth surface limited to enamel Retained tooth root Excessive attrition of teeth, localized Stage 2 grade B localized periodontitis per AAP/EFP 2017 classification Stage 1 grade B generalized periodontitis per AAP/EFP 2017 classification COMPREHENSIVE METABOLIC PANEL Routine 08/30/2022 3:52 PM CDT Asymptomatic HIV infection, with no history of HIV-related illness ([facility]) LIPID PANEL Routine 08/14/2022 1:18 PM CDT Pure hypercholesterolemia HEMOGLOBIN GLYCOSYLATED A1C Routine 08/14/2022 1:18 PM CDT Type 2 diabetes mellitus with hyperglycemia, with long-term current use of insulin ([facility]) HEPATITIS C AB W/RFLX HCV RNA, QT, RT PCR Routine 09/12/2021 3:50 PM CDT Exposure to STD from Last 3 Months or Most Recently Relevant to Health Maintenance Results * (ABNORMAL) COMPREHENSIVE METABOLIC PANEL (08/30/2022 3:52 PM CDT) GLUCOSE 95 65 - 99 mg/dL [facility] Comment: Fasting reference interval UREA NITROGEN (BUN) 28(H) 7 - 25 mg/dL [facility] CREATININE (blood) 1.19 0.70 - 1.28 mg/dL [facility] EGFR 64 > OR = 60 mL/min/1.7 3m2 [facility] Comment: The eGFR is based on the CKD-EPI 2020 equation. To calculate the new eGFR from a previous Creatinine or Cystatin C result, go to https://www.kidney.org/professionals/ kdoqi/gfr%5Fcalculator BUN/CREATININE RATIO 24(H) 6 - 22 (calc) [facility] SODIUM 136 135 - 146 mmol/L [facility] POTASSIUM 3.8 3.5 - 5.3 mmol/L [facility] CHLORIDE 104 98 - 110 mmol/L [facility] CARBON DIOXIDE 23 20 - 32 mmol/L [facility] CALCIUM 9.9 8.6 - 10.3 mg/dL [facility] PROTEIN, TOTAL 7.6 6.1 - 8.1 g/dL [facility] ALBUMIN 4.6 3.6 - 5.1 g/dL [facility] GLOBULIN 3.0 1.9 - 3.7 g/dL (calc) [facility] ALBUMIN/GLOBULIN RATIO 1.5 1.0 - 2.5 (calc) [facility] BILIRUBIN, TOTAL 1.2 0.2 - 1.2 mg/dL [facility] ALKALINE PHOSPHATASE 63 35 - 144 U/L [facility] AST 14 10 - 35 U/L [facility] ALT 25 9 - 46 U/L [facility] Blood Blood / Unknown 08/30/2022 3 :52 PM CDT 08/30/2022 3:53 PM CDT Narrative [facility] - 08/31/2022 5:48 AM CDT COLLECTION KIT GIVEN TO PATIENT. PATIENT ADVISED TO RETURN. us Tu Mcginnis MD LAB - BLOOD DRAW Final Res ult [facility] [place] [address] [place] [address], [facility] [address] [place] [address] * (ABNORMAL) HEMOGLOBIN, GLYCOSYLATED (A1C) (08/14/2022 1:18 PM CDT) HEMOGLOBIN A1C 5.9(H) <5.7 % of total Hgb [facility] Comment: For someone without known diabetes, a hemoglobin A1c value between 5.7% and 6.4% is consistent with prediabetes and should be confirmed with a follow-up test. For someone with known diabetes, a value <7% indicates that their diabetes is well controlled. A1c targets should be individualized based on duration of diabetes, age, comorbid conditions, and other considerations. This assay result is consistent with an increased risk of diabetes. Currently, no consensus exists regarding use of hemoglobin A1c for diagnosis of diabetes for children. Blood Blood / Unknown 08/14/2022 1 :18 PM CDT 08/14/2022 1:18 PM CDT us Tu Mcginnis MD LAB - BLOOD DRAW Edited Re sult - Final [facility] [place] [address] [place] [address], [facility] [address] [place] [address] * (ABNORMAL) LIPID PANEL (08/14/2022 1:18 PM CDT) [facility] CHOLESTEROL, TOTAL 110 <200 mg/dL [facility] HDL CHOLESTEROL 35(L) > OR = 40 mg/dL [facility] TRIGLYCERIDES 90 <150 mg/dL [facility] LDL-CHOLESTEROL 58 99 mg/dL (calc) [facility] Comment: Reference range: <100 Desirable range <100 mg/dL for primary prevention; <70 mg/dL for patients with CHD or diabetic patients with > or = 2 CHD risk factors. LDL-C is now calculated using the Luciano-Yocasta calculation, which is a validated novel method providing better accuracy than the Friedewald equation in the estimation of LDL-C. Luciano SS et al. YOHAN. 2013;310(19): 7657-4840 (http://education.baixing.com/faq/FAY127) CHOL/HDLC RATIO 3.1 <5.0 (calc) [facility] NON-HDL CHOLESTEROL 75 <130 mg/dL (calc) [facility] Comment: For patients with diabetes plus 1 major ASCVD risk factor, treating to a non-HDL-C goal of <100 mg/dL (LDL-C of <70 mg/dL) is considered a therapeutic option. Blood Blood / Unknown 08/14/2022 1 :18 PM CDT 08/14/2022 1:18 PM CDT Tu Mcginnis MD LAB - BLOOD DRAW Final Res ult Performing Organization Address City/[facility]/ZIP Co de Phone Number [facility] [address], [place] [address], [facility] [address] [place] [address] * HEPATITIS C AB W/RFLX HCV RNA, QT, RT PCR (09/12/2021 3:50 PM CDT) HEPATITIS C ANTIBODY NON-REACT MAC NON-REACT MAC [facility] SIGNAL TO CUT-OFF 0.32 <1.00 [facility] Comment: HCV antibody was non-reactive. There is no laboratory evidence of HCV infection. In most cases, no further action is required. However, if recent HCV exposure is suspected, a test for HCV RNA (test code 16033) is suggested. For additional information please refer to http://education.AcademixDirect/faq/AZD29m6 (This link is being provided for informational/ educational purposes only.) Blood Blood / Unknown 09/12/2021 3 :50 PM CDT 09/12/2021 3:50 PM CDT Tu Mcginnis MD LAB - BLOOD DRAW Edited Re sult - Final Performing Organization Address City/[facility]/ZIP Co de Phone Number [facility] [place] [address] [address], [place] [address], [employer] [address] [place] [address] from Last 3 Months or Most Recently Relevant to Health Maintenance Insurance AETNA MEDICARE AETNA MEDICARE DENTAL Care Teams Fourth Grade Teacher Relationship Specialty Start Date End Date Provider, Outside N/A N/A PCP - General Specialist - Other Service Providers 02/14/23
--- OUTSIDE RECORDS SUMMARY | 2025-06-08 07:33 | XMS_ITS | Referral Summary ---
Author Organization [facility] Address [address] [place] [address] Care Team Providers Care Javascript Front End Developer Name Role Phone Tu Mcginnis MD Primary Care Provider [phone] Singer Edel MD, Nadeem Fernandes Unavailable Domingo Ureña MD Unavailable [phone] Manny Cormier MD Unavailable [phone] Encounters Date Type Department Care Team Description 04/15/2025 2:45 PM CDT Office Visit [facility] V[facility] Vein Surgery [address] [place] [address] [address] [place] [address] Manny Cormier MD Bilateral carotid artery stenosis (Primary Dx); Mixed hyperlipidemia; Primary hypertension 04/15/2025 2:15 PM CDT - 04/15/2025 11:59 PM CDT [facility] [address] [place] [address] [address] [place] [address] Aftercare following surgery of the circulatory system Discharge Disposition: Discharge to home or self care from Last 3 Months Allergies No known active allergies Medications tamsulosin (FLOMAX) 0.4 mg extended release capsule Take 1 capsule (0.4 mg total) by mouth daily 10/01/20 23 Active omeprazole (PriLOSEC) 20 mg capsule Take 1 capsule (20 mg total) by mouth daily as needed 01/27/20 21 Active pen needle, diabetic (BD Ultra-Fine Mini Pen Needle) 31 gauge x 3/16 needle USE ONCE DAILY AT BEDTIME 09/04/20 18 Active pen needle, diabetic 32 gauge x 32 needle 1 each daily 07/23/20 22 Active insulin syringe-needle U-100 1 mL 31 gauge x 5/16 syringe Inject insulin twice daily 05/03/20 21 Active ARIPiprazole (ABILIFY) 2 mg tablet Take 1 tablet (2 mg total) by mouth daily as needed 01/27/20 24 Active aspirin 81 mg chewable tablet Take 1 tablet (81 mg total) by mouth daily 02/18/20 24 Active FLUoxetine (PROzac) 20 mg capsule Take 3 capsules (60 mg total) by mouth daily 04/09/20 24 Active losartan (COZAAR) 100 mg tablet Take 1 tablet (100 mg total) by mouth daily 04/09/20 24 Active calcium carbonate-edi min D3 1,250mg (500mg elemental) - 5 mcg (200 units) per tablet Take 1 tablet by mouth 2 (two) times a day for 7 doses 7 tablet 05/08/20 Active Additional Information Patient not taking.Reported on 04/15/2025 insulin glargine 100 unit/mL (3 mL) pen for injection Inject 64 Units under the skin Active bictegravir-em tricitabine-te nofovir (Biktarvy) 50-200-25 mg tablet Take 1 tablet by mouth daily 08/24/20 24 Active prednisoLONE acetate (PRED FORTE) 1 % ophthalmic suspension INSTILL 1 DROP IN BOTH EYES TWICE A DAY FOR 2 WEEKS 09/11/20 24 Active blood-glucose meter,continuo us (Dexcom G7 Hockey Player[place] [facility] [place] G7 lpn cma to check blood sugars continuously 1 each 09/22/20 24 Active glucagon 1 mg/0.2 mL auto-injectorI ndications:hyp oglycemic disorder Inject 1 mg under the skin as needed (severe hypoglycemia, may repeat in 15 mins if needed with new device.) 0.6 mL 3 09/22/20 24 Active blood-glucose meter,continuo us (Dexcom G7 Hockey Player) miscIndication s:Type 2 diabetes mellitus with hyperglycemia, unspecified whether detention insulin use (HCC) 1 kit daily Lot [id number] 1 each 09/23/20 24 Active dorzolamide (TRUSOPT) 2 % ophthalmic solution 10/06/20 24 Active doxycycline hyclate 100 mg capsule 09/21/20 24 Active traZODone (DESYREL) 50 mg tablet 09/29/20 Active gabapentin (NEURONTIN) 300 mg capsule 1 capsule (300 mg total) every 8 hours 10/26/20 24 Active clopidogreL (PLAVIX) 75 mg tablet Take 1 tablet (75 mg total) by mouth daily 30 tablet 11 11/12/20 24 025 Active atorvastatin (LIPITOR) 80 mg tablet Take 1 tablet (80 mg total) by mouth daily 30 tablet 11 11/12/20 24 Active miscellaneous medical supply (Blood Pressure Cuff) mis Use to check blood pressure 1-2 times daily. 1 each 01/27/20 25 Active Ozempic 2 mg/dose (8 mg/3 mL) pen injector injection INJECT 2 MG UNDER THE SKIN EVERY 7 DAYS 3 mL 2 04/13/20 25 Active blood-glucose sensor (Dexcom G7 Sensor) device 3 each by subcutaneous (via wearable injector) route continuously 9 each 05/24/20 25 026 Active blood-glucose sensor (Dexcom G7 Sensor) device 3 each by subcutaneous (via wearable injector) route continuously 9 each 3 09/22/20 24 025 Discontinued blood-glucose sensor deviceIndicati ons:Type 2 diabetes mellitus with hyperglycemia, unspecified whether termite treater helper insulin use (HCC) Change every 10 days Dexcom G7 sensor 3 each 3 09/23/20 24 025 Discontinued Active Problems Problem Noted Date Diagnosed Date Altered mental status, unspe cified altered mental status type 05/07/2024 OMKAR (acute kidney injury) 05/07/2024 Dehydration 05/07/2024 Substance abuse 05/07/2024 Personal history of transient cerebral ischemia 02/13/2024 Left-sided weakness 02/13/2024 Cerebrovascular accident (CVA) 02/13/2024 Pre-operative cardiovascular examination 024 MDD (major depressive disorder) 01/16/2024 Stroke 01/16/2024 Overview (01/16/2024): no residual Carotid stenosis, right 01/16/2024 Assessment & Plan (01/17/2024 11:02 AM DUCK FARMER): High-grade symptomatic right internal carotid artery stenosis. I have recommended proceeding with right TCAR. The procedure indications alternative treatments and all associated risks have been discussed with the patient. Will continue dual anti-platelet therapy. Patient agrees and understands. He wishes to proceed Bilateral carotid artery stenosis 01/03/2024 Assessment & Plan (04/21/2025 9:47 AM CDT): Status post right TCAR for symptomatic right ICA stenosis. This was complicated postoperatively by right hemispheric infarct. Patient has completed therapy still has some residual deficits although improved. Recommended continue ongoing medical management. Carotid stent remains widely patent. Follow up 6 months with duplex. Assessment & Plan (01/03/2024 10:00 AM DUCK FARMER): Impression: CT head and neck was performed at an outside facility which showed 80-90% stenosis to the right internal carotid artery with complaints of being off balance and aphasia at the time of study. He denies any new focal or lateralizing neurological defects, amaurosis fugax, or speech disturbances at this time. Plan: Recommend patient to continue ongoing risk factor modifications. - recommend ASA and statin therapy. -recommend copy of CTA head and neck images from outside facility to review. -discussed surgical treatment recommendations to patient and his brother. -recommend patient to follow-up in 1-2 weeks for re-evaluation with carotid duplex. Primary hypertension 01/03/2024 Assessment & Plan (04/21/2025 9:47 AM CDT): Hypertension chronic controlled. Continue current medical management. Assessment & Plan (01/17/2024 11:02 AM DUCK FARMER): Hypertension chronic and controlled. Continue current medical management. Assessment & Plan (01/03/2024 9:38 AM DUCK FARMER): Impression: Chronic stable. Plan: Continue losartan. Mixed hyperlipidemia 01/03/2024 Assessment & Plan (04/21/2025 9:47 AM CDT): Hyperlipidemia chronic controlled. Continue Lipitor. Assessment & Plan (01/17/2024 11:02 AM DUCK FARMER): Hyperlipidemia chronic and controlled. Continue statin therapy. Assessment & Plan (01/03/2024 9:38 AM DUCK FARMER): Impression: Chronic stable. Plan: Continue Lipitor AMS (altered mental status) 11/10/2023 DDD (degenerative disc disease), cervical 2021 Benign prostatic hyperplasia with urinary freque ncy 05/10/2022 Methamphetamine abuse 05/10/2022 Moderate episode of recurrent major depressive d isorder 02/06/2022 Human immunodeficiency virus (HIV) disease 09/12 Acute metabolic encephalopathy 01/18/2021 Major depressive disorder, single episode, moder ate 09/26/2007 Asymptomatic varicose veins 12/05/2006 Osteoarthritis 12/05/2006 Immunizations Immunization Administration Dates Next Due H1N1 Inj 07/28/2013 Hep A, Adult 05/10/2022,10/12/2021 Heplisav-b (Hepatitis B) 05/10/2022,10/12/2021 Influenza, Quadrivalent, Hig h Dose, Preservative Free, Intrr 08/30/2022,10/12/2021 Influenza, Quadrivalent, Spl it, Intramuscular 08/15/2020 Influenza, Trivalent, High D ose, Split, Preservative Free, Intramuscular 11/16/2019,01/20/2019,10/01/2017,07/27 Pneumococcal Conjugate PCV 13 11/17/2013 Pneumococcal Polysaccharide PPV23 02/28/2016 Td, adsorbed 03/22/2007 Social History Tobacco Use Types Packs/Day Years Used Date Smoking Tobacco: Never Passive Smoke Exposure: Past Smokeless Tobacco: Never Tobacco Cessation:Counseling Given: Not Answered [facility] Utilities Answer Date Recorded In the past 12 months has BRIKA, gas, oil, or water company threatened to shut off services in your home? No 05/08/2024 Social Connection and Isolation Panel [NHANES] A nswer Date Recorded In a typical week, how many times do you talk on the phone with family, friends, or neighbors? Once a week 05/08/2024 How often do you get together with friends or re latives? Once a week 05/08/2024 How often do you attend hinduism or latter day serv ices? Never 05/08/2024 Do you belong to any clubs o r organizations such as hinduism groups, unions, fraternal or athletic groups, or school groups? No 05/08/2024 How often do you attend meet ings of the clubs or organizations you belong to? Never 05/08/2024 Are you , , di vorced, , never , or living with a partner? Never 05/08/2024 AUDIT-C Answer Date Recorded Q1: How often do you have a drink containing alcohol? Never 01/31/2024 Q2: How many drinks containi ng alcohol do you have on a typical day when you are drinking? Patient does not drink Q3: How often do you have si x or more drinks on one occasion? Never 01/31/2024 Overall Financial Resource Strain (CARDIA) Answe r Date Recorded How hard is it for you to pa y for the very basics like food, housing, medical care, and heating? Not very hard 05/08/2024 PHQ-2 Answer Date Recorded PHQ-2 Total Score (If total score is 3 or more points, staff should administer the PHQ-9) 1 01/26/2025 Hunger Vital Sign Answer Date Recorded Within the past 12 months, y ou worried that your food would run out before you got the money to buy more. Sometimes true Within the past 12 months, t he food you bought just didn't last and you didn't have money to get more. Never true PRAPARE - Transportation Answer Date Re corded In the past 12 months, has l ack of transportation kept you from medical appointments or from getting medications? No 04/25 In the past 12 months, has l ack of transportation kept you from meetings, work, or from getting things needed for daily living? No 05/08/2024 Housing Stability Vital Sign Answer Cornelio e Recorded In the last 12 months, was t here a time when you were not able to pay the mortgage or rent on time? No 02/12/2024 In the last 12 months, how many places have you lived? 1 02/12/2024 In the last 12 months, was t here a time when you did not have a steady place to sleep or slept in a senior living (including now)? No 02/12/2024 Housing Stability Vital Sign Answer Cornelio e Recorded In the last 12 months, was t here a time when you were not able to pay the mortgage or rent on time? No 05/08/2024 In the past 12 months, how m any times have you moved where you were living? 1 05/08/2024 At any time in the past 12 m [facility], were you homeless or living in a senior living (including now)? No 05/08/2024 Personal Safety Answer Date Recorded Have you ever been in or are you currently in a harmful physical or emotional relationship or is someone making you feel afraid or unsafe? Denies 05/07/2024 Sex and Gender Information Value Date Recorded Sex Assigned at Not on file Legal Sex Male 8:06 AM DUCK FARMER Gender Identity Not on file Sexual Orientation Not on file Last Filed Vital Signs Vital Sign Reading Time Taken Comments Blood Pressure 163/76 04/15/2025 2:50 PM CDT Pulse 72 04/15/2025 2:50 PM CDT Temperature 36.2 C (97.1 F) 01/26/2025 1:34 PM DUCK FARMER Respiratory Rate 18 04/15/2025 2:50 PM CDT Oxygen Saturation 97% 04/15/2025 2:50 PM CDT Inhaled Oxygen Concentration - - Weight 73.9 kg (163 lb) 04/15/2025 2:50 PM CDT Height 172.7 cm (5' 8) 04/15/2025 2:50 PM CDT Body Mass Index 24.78 04/15/2025 2:50 PM CDT Plan of Treatment Not on file Medical Devices Implanted Type Area Cyber Forensic Specialist Device Identifier Shelf Expiration Date Model / Serial / Lot [employer] En[employer] Flex 8mm .065in 40mm 57cm Delivery System Angle Tip Sr-0840-[id number] - [id number] Implanted:Qty: 1 on 02/11/2024 by [facility] St[facility] Right: Carotid [employer] [id number] 07/25/2026 SR-0840-C S / / [id number] Procedures Procedure Name Priority Date/Time Associated Diagnosis Comments US CAROTIDS DUPLEX BILATERAL Schedule Routine, Read Routine (OP Routine) 04/15/2025 2:57 PM CDT Aftercare following surgery of the circulatory system POCT HEMOGLOBIN A1C Routine 01/26/2025 1 :45 PM DUCK FARMER Type 2 diabetes mellitus with hyperglycemia, unspecified whether detention insulin use (HCC) ALBUMIN CREATININE RATIO, URINE Routine 09/22/2024 4:35 PM CDT Type 2 diabetes mellitus with hyperglycemia, unspecified whether termite treater helper insulin use (HCC) EGFR Routine 05/08/2024 5:21 AM CDT LIPID PANEL Routine 05/08/2024 5:21 AM CDT URINALYSIS AND REFLEX TO MICROSCOPIC AND CULTURE STAT 05/07/2024 8:45 AM CDT from Last 3 Months or Most Recently Relevant to Health Maintenance Results * US Carotids Duplex Bilateral (04/15/2025 2:57 PM CDT) Anatomical Region Laterality Modality Vascular Bilateral Ultrasound 04/15/2025 2:28 PM CDT Narrative 04/16/2025 7:38 AM CDT Carotid Duplex Ultrasound Report Patient Name: ELDER BRAGA P : 1945 (79y 3m) Study Date: 04/15/2025 2:28:08 PM Gender: M Combat Control Manager: Elida Paniagua Provider: MANNY CORMIER Quality: Adequate Order Provider: MANNY CORMIER PROCEDURES: Carotid Report: Carotid duplex examination of the extracranial arteries was performed using 2D, color and spectral Doppler. Blood Pressure: Right: 156 mmHg. Left: 150 mmHg. INDICATIONS: Personal history of TIA and cerebral infarction and Z48.812 Encounter for surgical aftercare following surgery on the circulatory system. HISTORY: Right carotid stent 02/11/24 H/O HTN, HLD, DM quit smoking 2 years ago. COMPARISONS: No change compared to prior study. The previous exam was completed on 05/07/24. MEASUREMENTS: Right Value Left Value RT Prox CCA PSV 84 cm/sec LT Prox CCA PSV 95 cm/sec RT Prox CCA EDV 9 cm/sec LT Prox CCA EDV 9 cm/sec RT Distal ICA PSV 66 cm/sec LT Distal CCA PSV 79 cm/sec RT Distal ICA EDV 16 cm/sec LT Distal CCA EDV 13 cm/sec RT ECA Mid PSV 222 cm/sec LT Prox ICA PSV 88 cm/sec RT ECA EDV 13 cm/sec LT Prox ICA EDV 14 cm/sec RT ICA/CCA 0.78 ratio LT Mid ICA PSV 49 cm/sec Rt Vert PSV 46 cm/sec LT Mid ICA EDV 12 cm/sec LT Distal ICA PSV 64 cm/sec LT Distal ICA EDV 18 cm/sec LT ECA Mid PSV 190 cm/sec LT ECA EDV 13 cm/sec LT ICA/CCA 0.92 ratio Lt Vert PSV 53 cm/sec STENT MEASUREMENTS: Right Value Location DIST CCA INTO ICA Rt Stent Prx [place] PSV 106/13 cm/sec Rt Stent Prx PSV 85/8 cm/sec Rt Stent Mid PSV 69/16 cm/sec Rt Stent Dst PSV 60/13 cm/sec Rt Stent Dst [place] PSV 71/12 cm/sec FINDINGS: Rt Common Carotid Artery: Duplex imaging of the right common carotid artery is within normal limits without evidence of atherosclerotic disease. Rt Internal Carotid Artery: The plaque in the right internal carotid artery appears to be heterogeneous and smooth. Stent patent. Rt External Carotid Artery: Patent right external carotid artery with evidence of atherosclerotic disease present. Rt Vertebral Artery: The right vertebral artery is patent with antegrade flow. Lt Common Carotid Artery: The plaque in the left CCA appears to be heterogeneous and smooth. Lt Internal Carotid Artery: The plaque in the left internal carotid artery appears to be heterogeneous and smooth. Atherosclerotic changes of the left internal carotid artery without hemodynamically significant Doppler findings. <50% stenosis. Lt External Carotid Artery: Patent left external carotid artery with evidence of atherosclerotic disease present. Lt Vertebral Artery: The left vertebral artery is patent with antegrade flow. CONCLUSIONS: 1. Right internal carotid artery stent is patent. 2. The left internal carotid artery disease is consistent with a less than 50% stenosis. ATTESTATION: I have reviewed and interpreted the pertinent images and measurements of this study. I attest to the conclusions in the final report that is provided above. Electronically Signed By: Silvio Cormier MD 04/16/2025 7:29:39 AM CDT Procedure Note Silvio Cormier MD - 04/16/2025 Carotid Duplex Ultrasound Report Patient Name: ELDER BRAGA P : 1945 (79y 3m) Study Date: 04/15/2025 2:28:08 PM Gender: M Combat Control Manager: Elida Paniagua Provider: MANNY CORMIER Quality: Adequate Order Provider: MANNY CORMIER PROCEDURES: Carotid Report: Carotid duplex examination of the extracranial arterieswas performed using 2D, color and spectral Doppler. Blood Pressure: Right: 156 mmHg. Left: 150 mmHg. INDICATIONS: Personal history of TIA and cerebral infarction and Z48.812 Encounter forsurgical aftercare following surgery on the circulatory system. HISTORY: Right carotid stent 02/11/24 H/O HTN, HLD, DM quit smoking 2 years ago. COMPARISONS: No change compared to prior study. The previous exam was completed on05/07/24. MEASUREMENTS: Right Value Left Value RT Prox CCA PSV 84 cm/sec LT Prox CCA PSV 95 cm/sec RT Prox CCA EDV 9 cm/sec LT Prox CCA EDV 9 cm/sec RT Distal ICA PSV 66 cm/sec LT Distal CCA PSV 79 cm/sec RT Distal ICA EDV 16 cm/sec LT Distal CCA EDV 13 cm/sec RT ECA Mid PSV 222 cm/sec LT Prox ICA PSV 88 cm/sec RT ECA EDV 13 cm/sec LT Prox ICA EDV 14 cm/sec RT ICA/CCA 0.78 ratio LT Mid ICA PSV 49 cm/sec Rt Vert PSV 46 cm/sec LT Mid ICA EDV 12 cm/sec LT Distal ICA PSV 64 cm/sec LT Distal ICA EDV 18 cm/sec LT ECA Mid PSV 190 cm/sec LT ECA EDV 13 cm/sec LT ICA/CCA 0.92 ratio Lt Vert PSV 53 cm/sec STENT MEASUREMENTS: Right Value Location DIST CCA INTO ICA Rt Stent Prx [place] PSV 106/13 cm/sec Rt Stent Prx PSV 85/8 cm/sec Rt Stent Mid PSV 69/16 cm/sec Rt Stent Dst PSV 60/13 cm/sec Rt Stent Dst [place] PSV 71/12 cm/sec FINDINGS: Rt Common Carotid Artery: Duplex imaging of the right common carotidartery is within normal limits without evidence of atherosclerotic disease. Rt Internal Carotid Artery: The plaque in the right internal carotidartery appears to be heterogeneous and smooth. Stent patent. Rt External Carotid Artery: Patent right external carotid artery withevidence of atherosclerotic disease present. Rt Vertebral Artery: The right vertebral artery is patent with antegradeflow. Lt Common Carotid Artery: The plaque in the left CCA appears to beheterogeneous and smooth. Lt Internal Carotid Artery: The plaque in the left internal carotid arteryappears to be heterogeneous and smooth. Atherosclerotic changes of the left internalcarotid artery without hemodynamically significant Doppler findings. <50% stenosis. Lt External Carotid Artery: Patent left external carotid artery withevidence of atherosclerotic disease present. Lt Vertebral Artery: The left vertebral artery is patent with antegradeflow. CONCLUSIONS: 1. Right internal carotid artery stent is patent. 2. The left internal carotid artery disease is consistent with a less than50% stenosis. ATTESTATION: I have reviewed and interpreted the pertinent images and measurements ofthis study. I attest to the conclusions in the final report that is provided above. Electronically Signed By: Silvio Cormier MD 04/16/2025 7:29:39 AM CDT us Manny Cormier MD IMG US PROCEDURES Final Re sult * POCT hemoglobin A1c (01/26/2025 1:45 PM DUCK FARMER) Hemoglobin A1C, POC 7.0 4.0 - 5.6 % Blood 01/26/2025 1:45 PM DUCK FARMER us Simba Coker MD POINT OF CARE TEST ORDERABLES F inal Result * (ABNORMAL) Albumin Creatinine Ratio, Urine (09/22/2024 4:35 PM CDT) Albumin Ur 45.5 mg/L Comment: Interpretive Data No reference range established. Current interpretive data was last revised 2019. Creatinine Ur 138.6 mg/dL [facility] Comment: Interpretive Data No reference range established. Current interpretive data was last revised 2019. Albumin Creatinine Ratio, Ur 33(H) 1 - 29 mg/g [facility] Urine 09/22/2024 4:35 PM CDT 09/22/2024 7:50 PM CDT us Simba Coker MD LAB URINE ORDERABLES Final Resu lt [facility] [address] Department [place] [address] * (ABNORMAL) eGFR (05/08/2024 5:21 AM CDT) eGFR 57(L) >=60 mL/min/1. 73 m2 Comment: Interpretive Data Reference Interval Normal >/= 90 mL/min/1.73m2 Mildly decreased* 60 - 89 mL/min/1.73m2 Mildly to moderately decreased 45 - 59 mL/min/1.73m2 Moderately to severely decreased 30 - 44 mL/min/1.73m2 Severely decreased 15 - 29 mL/min/1.73m2 Kidney Failure < 15 mL/min/1.73m2 *Relative to young adult level Estimated glomerular filtration rate is determined by the 2020 CKD-EPI equation recommended by the National Kidney Foundation (A Unifying Approach to GFR Estimation: Recommendations of the NKF-ASK Task Force on Reassessing the Inclusion of Race in Diagnosing Kidney Disease, JASN 2020). The CKD-EPI equation should not be used for patients with unstable renal function and has not been validated in children and those over 70. Current interpretive data was last reviewed 2021. Testing performed by: [facility], [address] [place] [address]., [id number] Blood 05/08/2024 5:21 AM CDT 05/08/2024 5:58 AM CDT us Rosa Stephenson MD LAB BLOOD ORDERABLES Fin al Result [facility] [address] [facility] Department [place] [address] * (ABNORMAL) Lipid panel (05/08/2024 5:21 AM CDT) Cholesterol 108 30 - 199 mg/dL Comment: Interpretive Data Ages < or = 19 years Acceptable: <170 mg/dL Borderline high: 170-199 mg/dL High: >or= 200 mg/dL Ages > or = 20 years Desirable: <200 mg/dL Borderline high: 200-239 mg/dL High: >or= 240 mg/dL Literature References: 1. Expert Panel on Integrated Guidelines for Cardiovascular Health and Risk Reduction in Children and Adolescents. Pediatrics 2011;128:S213 2. NCEP Expert Panel. Circulation 2004;110:227 Current Interpretive Data was last revised on 2018. Testing performed by: [address] [address] Triglycerides 85 <=149 mg/dL [facility] Comment: Interpretive Data Ages < or = 9 years Acceptable: <75 mg/dL Borderline high: 75-99 mg/dL High: >or= 100 mg/dL Ages 10 to 20 years Acceptable: <90 mg/dL Borderline high: 90-129 mg/dL High: >or= 130 mg/dL Ages > or = 20 years Desirable: <150 mg/dL Borderline high: 150-199 mg/dL High: 200-499 mg/dL Very high: >or= 499 mg/dL Literature References: 1. Expert Panel on Integrated Guidelines for Cardiovascular Health and Risk Reduction in Children and Adolescents. Pediatrics 2011;128:S213 2. NCEP Expert Panel. Circulation 2004;110:227 Current Interpretive Data was last revised on 2018. Testing performed by: [address] [address] HDL 33(L) >=40 mg/dL [facility] Comment: Interpretive Data Ages < or = 19 years Acceptable: >45 mg/dL Borderline low: 40-45 mg/dL Low: <40 mg/dL Ages > or = 20 years Desirable: >or= 60 mg/dL Low: <40 mg/dL Literature References: 1. Expert Panel on Integrated Guidelines for Cardiovascular Health and Risk Reduction in Children and Adolescents. Pediatrics 2011;128:S213 2. NCEP Expert Panel. Circulation 2004;110:227 Current Interpretive Data was last revised on 2018. Testing performed by: [address] [address] LDL, calculated 58 <=129 mg/dL [facility] Comment: Interpretive Data Ages < or = 19 years Acceptable: <110 mg/dL Borderline high: 110-129 mg/dL High: >or= 130 mg/dL Ages > or = 20 years Optimal: <100 mg/dL Near optimal: 100-129 mg/dL Borderline high: 130-159 mg/dL High: >160 mg/dL Literature References: 1. Expert Panel on Integrated Guidelines for Cardiovascular Health and Risk Reduction in Children and Adolescents. Pediatrics 2011;128:S213 2. NCEP Expert Panel. Circulation 2004;110:227 Current Interpretive Data was last revised on 2018. Testing performed by: [address] [address] Non-HDL Cholesterol 75 mg/dL [facility] Comment: Interpretive Data Ages < or = 19 years Acceptable: <120 mg/dL Borderline high: 120-144 mg/dL High: >145 mg/dL Ages > or = 20 years When triglycerides are >200 mg/dL, Non-HDL cholesterol is a secondary target of therapy with treatment goals that are 30 mg/dL greater than the LDL cholesterol target. Literature References: 1. Expert Panel on Integrated Guidelines for Cardiovascular Health and Risk Reduction in Children and Adolescents. Pediatrics 2011;128:S213 2. NCEP Expert Panel. Circulation 2004;110:227 Current Interpretive Data was last revised on 2018. Testing performed by: [address] [address] Chol/HDL ratio 3 NAHEED TOURE Comment:Testing performed by : [address] [address] Blood 05/08/2024 5:21 AM CDT 05/08/2024 5:58 AM CDT Carin Gross NP LAB BLOOD ORDERABLES Final Result [facility] [address] [facility] Department [place] [address] * (ABNORMAL) Urinalysis reflex to microscopic and culture Urine (05/07/2024 8:45 AM CDT) Color, ur Straw Yellow Comment:Testing performed by : [address] [address] Clarity, ur Clear Clear NAHEED TOURE Comment:Testing performed by : [address] [address] Specific gravity, ur 1.008 1.003 - 1.030 NAHEED Comment:Testing performed by : [address] [address] pH, urine 5.5 NAHEED Comment: Interpretive Data U rine pH is affected by diet, medications, systemic acid-base disturbances, and renal tubular function. pH may affect urinary stone formation. For example, urine pH below 6.0 may help reduce the tendency for calcium phosphate stones and pH greater than 6.0 may reduce the tendency for uric acid stone formation. Source: [facility] Current Interpretive Data was last revised on 2017 Testing performed by: [address] [address] Protein, ur ql Negative Negative NAHEED Comment:Testing performed by : [address], [place]., [address] Glucose, ur ql 1+(A) Negative NAHEED Comment:Testing performed by : [address] [address] Ketones, ur Negative Negative NAHEED Comment:Testing performed by : [address] [address] Bilirubin, ur Negative Negative NAHEED Comment:Testing performed by : [address] [address] Blood, ur Negative Negative NAHEED Comment:Testing performed by : [address] [address] Urobilinogen, ur <2.0 <2.0 mg/dL NAHEED Comment:Testing performed by : [address] [address] Nitrite, ur Negative Negative NAHEED Comment:Testing performed by : [address] [address] Leukocyte esterase, ur Negative Negative NAHEED Comment:Testing performed by : [address] [address] UA reflex comment Reflex conditions for microscopic UA and culture not met. NAHEED Comment:Testing performed by : [address] [address] Urine 05/07/2024 8:45 AM CDT 05/07/2024 8:50 AM CDT Joe Ambriz DO LAB MICROBIOLOGY - GENERAL ORD ERABLES Final Result NAHEED [address] [facility] [place] [address] from Last 3 Months or Most Recently Relevant to Health Maintenance Insurance [facility] MEDICARE [facility] MEDICARE [facility] [employer] MEDICARE GOLD Advance Directives For more information, please contact: [phone] * LIMITED - No CPR (Latest Code Status on File) Date Activated Date Inactivated Comments 05/07/2024 12:24 PM 05/08/2024 6:56 PM Question Answer Comments Provide aggressive medical m anagement before a full cardiopulmonary arrest occurs. Use antibiotics, IV Fluids, and medical treatment unless specifically selected below: No intubationNo cardioversion * Full Code Date Activated Date Inactivated Comments 02/11/2024 11:39 AM 02/18/2024 9:15 PM Care Teams Javascript Front End Developer Relationship Specialty Start Date End Date Tu Mcginnis MD [address] [place] [address] PCP - General Internal Medicine 07/31/23 [place] [address] [address] [place] [id number] 07/31/23 Domingo Ureña MD [facility] [facility] [address] [place] [address] Consulting Physician Cardiology 01/31/24 Manny Cormier MD [address] [facility] [address] [place] [address] Surgeon Surgery 01/31/24
--- OUTSIDE RECORDS SUMMARY | 2025-06-08 07:33 | XMS_ITS | Clinical Summary ---
Author Organization [facility]ischer Address [address] [place] [address] Care Team Providers Care Theater Set Production Designer Name Role Phone Unavailable Primary Care Provider Unavailabl e Allergies No known active allergies Medications BD ULTRA-FINE MINI PEN NEEDLE 31 gauge x 3/16 Needle USE ONCE DAILY AT BEDTIME 200 Each 09/04/20 18 Active albuterol HFA 90 mcg inhaler Take 2 Puffs by inhalation every 4 hours as needed. 01/14/20 21 Active aspirin (SARAH) 325 mg tablet Take 325 mg by mouth. 01/14/20 21 Active ondansetron (ZOFRAN ODT) 4 mg Tablet, Rapid Dissolve DISSOLVE 1 TABLET ON THE TONGUE EVERY 4 HOURS NEEDED FOR NAUSEA 01/14/20 21 Active omeprazole (PriLOSEC) 20 mg Capsule, Delayed Release(E.C.)Indic ations:Type 2 diabetes mellitus with hyperglycemia, without long-term current use of insulin (CMS/HCC),Essentia l hypertension,Hyper lipidemia associated with type 2 diabetes mellitus (CMS/HCC),Major depressive disorder, single episode, moderate (CMS/HCC) TAKE 1 CAPSULE BY MOUTH EVERY DAY as need for acid reflux 30 Capsule 6 01/27/20 21 Active nystatin (MYCOSTATIN) 100,000 unit/mL suspension Take 5 mL (500,000 Units) by mouth 4 times daily. Swish and swallow 200 mL 01/27/20 21 Active insulin NPH human (NovoLIN N NPH U-100 Insulin) 100 unit/mL vial Inject 30 Units by subcutaneous injection 2 times daily before meals. 30 mL 3 01/31/20 21 Active flash glucose sensor (FreeStyle Tina 14 Day Sensor) Kit Test sugar level 6 times daily before meals and 2 hours after meals 2 Kit 5 01/31/20 21 Active flash glucose scanning reader (FreeStyle Tina 14 Day Moro) Misc Test sugar level 6 times daily 1 Each 1 01/31/20 21 Active FLUoxetine (PROzac) 20 mg capsule TAKE 3 CAPSULES BY MOUTH EVERY DAY 90 Capsule 5 02/04/20 Active Insulin Syringe-Needle U-100 1 mL 31 gauge x 04/09 Syringe Inject insulin twice daily 100 Each 2 05/03/20 21 Active blood sugar diagnostic (Blood Glucose Test) Strip Test three times daily( patient request Generic RX or for TrueTrack) E 11.65 300 Strip 1 05/11/20 Active losartan (COZAAR) 100 mg tablet TAKE 1 TABLET BY MOUTH EVERY DAY 90 Tablet 1 08/07/20 Active pravastatin (PRAVACHOL) 40 mg tabletIndications: Type 2 diabetes mellitus with hyperglycemia, without long-term current use of insulin (CMS/HCC),Hyperlip idemia associated with type 2 diabetes mellitus (CMS/HCC),Essentia l hypertension,Major depressive disorder, single episode, moderate (CMS/HCC) TAKE 1 TABLET BY MOUTH EVERYDAY AT BEDTIME 90 Tablet 1 08/07/20 Active Active Problems Patient Care Coordination No te Formatting of this note migh t be different from the original. Last AWV 04/23/17 Problem Noted Date Diagnosed Date History of melanoma 04/23/2017 History of stroke without residual deficits 02/24 Essential hypertension 07/04/2015 Screening for unspecified malignant neoplasm Hyperlipidemia associated with type 2 diabetes m ellitus 12/07/2011 Major depressive disorder, single episode, moder ate 09/26/2007 Type 2 diabetes mellitus wit h hyperglycemia, with long-term current use of insulin 01/13/2007 Osteoarthritis 12/05/2006 Asymptomatic varicose veins 12/05/2006 Resolved Problems Problem Noted Date Diagnosed Date Resolved Date Need for Streptococcus pneumoniae vaccination 11/17/20 13 02/28/2016 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 Cancer Staging:Clinical stage from 10/15/2007:Harish Level 4, Breslow 1- Unsigned Pathologic: Unsigned Cerebral infarction 10/15/2013 04/23/20 17 Overview (10/15/2013): Occurrence 02/2005 Immunizations Immunization Administration Dates Next Due (PNEUMOVAX 23)(50 YRS UP) PN EUMOCOCCAL POLYSACCHARIDE (PPV23) 0.5 ML, IM 02/28/2016 (PREVNAR 13)(6 WKS UP) PNEUM OCOCCAL CONJUGATE (PCV13) 0.5 ML, IM 11/17/2013 (TDVAX)(7 YRS UP) TETANUS AN D DIPHTHERIA TOXOIDS, ADSORBED (2 LF OF TETANUS TOXOID AND 2 LF OF DIPHTHERIA TOXOID), 0.5ML (PF), IM 03/22/2007 INFLUENZA VACCINE HIGH DOSE QUADRIVALENT 65 YR UP PF IM 08/15/2020 Influenza A (H1N1) Vaccine IM 07/28/2013 Influenza Vaccine High Dose 65+ Yrs IM 1 01/17/2019,01/20/2019,10/01/2017,07/27 Family History Medical History Relation Name Comments Heart Disease Father Alzheimer's Disease Mother Colon Cancer Mother Diabetes Mother High Cholesterol Mother Hypertension Mother Relation Name Status Comments Father Mother Social History Tobacco Use Types Packs/Day Years Used Date Smoking Tobacco: Never Smokeless Tobacco: Never Alcohol Use Standard Drinks/Week Comments Yes 0 (1 standard drink = 0.6 oz pur e alcohol) Sex and Gender Information Value Date Recorded Sex Assigned at Not on file Legal Sex Male 7:17 PM CIRCUITS ENGINEER Gender Identity Not on file Sexual Orientation Not on file Occupation Industry Job Start Date Job End Date Not on file Not on file Not on file Not on file Last Filed Vital Signs Vital Sign Reading Time Taken Comments Blood Pressure 138/82 03/06/2021 4:03 PM CDT Pulse 73 03/06/2021 4:03 PM CDT Temperature 36.5 C (97.7 F) 03/06/2021 4:03 PM CDT Respiratory Rate - - Oxygen Saturation 98% 03/06/2021 4:03 PM CDT Inhaled Oxygen Concentration - - Weight 74.8 kg (165 lb) 03/06/2021 4:03 PM CDT Height 170.2 cm (5' 7) 03/06/2021 4:03 PM CDT Body Mass Index 25.84 03/06/2021 4:03 PM CDT Plan of Treatment Health Maintenance Due Date Last Done Comments ZOSTER VACCINE (1 of 2) 1997 DTAP/TDAP/TD VACCINES (1 - Tdap) 03/23/2007 03/22/20 07 COLORECTAL SCREENING 09/27/2019 09/27/2014, 09/27/2014, 11/17/2013 DIABETES ANNUAL FOOT EXAM 01/26/20222020, 08/15/2020, 11/16/2019, Additional history exists DIABETES MICROALBUMIN ANNUAL SCREEN 01/26/2022 01/26/2021, 08/15/2020, 01/20/2019, Additional history exists LDL CHOLESTEROL ANNUAL 01/26/2022 , 08/15/2020, 01/20/2019, Additional history exists RSV VACCINE (60+ or ) (1 - 1-dose 75+ series) 2022 DIABETES ANNUAL RETINAL EXAM 07/03/202307/2022, 07/03/2022, 06/28/2021, Additional history exists DIABETES HBA1C Q 6 MONTHS 08/02/20242023, 02/06/2022, 09/12/2021, Additional history exists INFLUENZA VACCINE (#1) 2025 , 11/16/2019, 01/20/2019, Additional history exists PNEUMOCOCCAL VACCINE 50+ YEARS Completed 02/28/2016 , 11/17/2013 Procedures Procedure Name Priority Date/Time Associated Diagnosis Comments HM DIABETES EYE EXAM Routine 07/03/2022 MICROALBUMIN/CREATI NINE RATIO, RANDOM UR Routine 01/26/2021 2:48 PM CIRCUITS ENGINEER Type 2 diabetes mellitus with hyperglycemia, with long-term current use of insulin ([facility]) LIPID PANEL Routine 01/26/2021 2:48 PM CIRCUITS ENGINEER Type 2 diabetes mellitus with hyperglycemia, with long-term current use of insulin ([facility]) Essential hypertension Type 2 diabetes mellitus with hyperglycemia, without long-term current use of insulin ([facility]) Hyperlipidemia associated with type 2 diabetes mellitus ([facility]) HEMOGLOBIN A1C Routine 01/26/2021 2:48 PM CIRCUITS ENGINEER Type 2 diabetes mellitus with hyperglycemia, with long-term current use of insulin ([facility]) from Last 3 Months or Most Recently Relevant to Health Maintenance Results * DIABETES EYE EXAM (07/03/2022) Abstract Provider HEALTH MAINTENANCE Final Resul t [facility] CLIA# [id number] [facility] [place] [address] * MICROALBUMIN/CREATININE RATIO, RANDOM UR (01/26/2021 2:48 PM CIRCUITS ENGINEER) MICROALBUMIN, URINE 1.9 No Reference Range mg/dL 01/26/2021 7:50 PM CIRCUITS ENGINEER [facility] Cued [facility] CREATININE, URINE 219.2 40.0 - 278.0 mg/dL 01/26/2021 7:50 PM CIRCUITS ENGINEER [facility] Cued [facility] Comment:Reference Range vari es with fluid intake and diet. MICROALBUMIN/C REAT RATIO, UR 8.7 <17.0 mg/g 01/26/2021 7:50 PM CIRCUITS ENGINEER [facility] Cued [facility] Urine URINE SPECIMEN OBTAINED BY CLEAN CATCH PROCEDURE / Unknown Collection / Unknown 01/26/2021 2:48 PM CIRCUITS ENGINEER 01/26/2021 2:48 PM CIRCUITS ENGINEER Narrative [facility] Cued [facility] - 01/26/2021 7:50 PM CIRCUITS ENGINEER Condition Microalbumin/Creat ratio Normal Males <17 Normal Females <25 Microalbuminuria Males 17-299 Microalbuminuria Females 25-299 Overt proteinuria >=300 Nadeem Machado Jr., MD URINE ORDERABLES Final R esult [facility] Cued [facility] CLIA# [id number] [address] [facility] [place] [address] * (ABNORMAL) HEMOGLOBIN A1C (01/26/2021 2:48 PM CIRCUITS ENGINEER) HEMOGLOBIN A1C 8.6(H) <5.7 % 01/26/2021 8:51 PM [facility] Cued [facility] EST. AVG GLUCOSE, A1C 200 mg/dL 01/26/2021 8:51 PM [facility] Cued [facility] Blood Venipuncture / Unknown 01/26/2021 2:48 PM CIRCUITS ENGINEER 01/26/2021 2:48 PM CIRCUITS ENGINEER [facility] Cued [facility] - 01/26/2021 8:51 PM CIRCUITS ENGINEER HGB A1C INTERPRETATION NORMAL: <5.7% PRE-DIABETES: 5.7 - 6.4% DIABETES: 6.5% OR GREATER Nadeem Machado Jr., MD CHEMISTRY ORDERABLES Fin al Result [facility] Cued [facility]# [id number] [address] [facility] [address] * (ABNORMAL) LIPID PANEL (01/26/2021 2:48 PM CIRCUITS ENGINEER) CHOLESTEROL 124 <200 mg/dL 01/26/2021 8:05 PM [facility] Cued [facility] TRIGLYCERIDE 117 <150 mg/dL 01/26/2021 8:05 PM [facility] Cued [facility] HDL 29(L) 40 - 59 mg/dL 01/26/2021 8:05 PM [facility] Cued [facility] LDL CALCULATED 72 <100 mg/dL 01/26/2021 8:05 PM [facility] Cued [facility] NON-HDL CHOLESTEROL 95 <130 mg/dL 01/26/2021 8:05 PM [facility] Cued [facility] Blood Venipuncture / Unknown 01/26/2021 2:48 PM CIRCUITS ENGINEER 01/26/2021 2:48 PM CIRCUITS ENGINEER [facility] Cued [facility] - 01/26/2021 8:05 PM CIRCUITS ENGINEER TOTAL CHOLESTEROL mg/dL Desirable <200 Borderline high 200-239 High >=240 TRIGLYCERIDES mg/dL Normal <150 Borderline high 150-199 High 200-499 Very high >=500 HDL CHOLESTEROL mg/dL Low <40 Normal 40-59 Desirable >=60 NON HDL CHOLESTEROL mg/dL Optimal <130 Near Optimal 130-159 Borderline High 160-189 Very High >=190 CALCULATED LDL mg/dL LDL <70, OPTIMAL if have Atherosclerotic cardiovascular disease (ASCVD) or intermediate or higher (>7.5%) 10 year risk of ASCVD including most adults with diabetes. LDL <100, Optimal in adult patients with low (<7.5%) 10 year ASCVD risk LDL 100-160, Suboptimal LDL >160, High LDL >190, Very high ATPIII Guidelines Reference Ranges for Lipid Panels (NCEP/AMA) . Nadeem Machado Jr., MD CHEMISTRY ORDERABLES Fin al Result [facility]ORAT[facility] SERVICES [facility]# [id number] [address] [facility] [place] [address] from Last 3 Months or Most Recently Relevant to Health Maintenance Insurance MEDICARE PART A AND B
--- OUTSIDE RECORDS SUMMARY | 2025-06-08 07:33 | XMS_ITS | Encounter Summary ---
Author Organization [facility] Address [facility] [place] [address] Care Team Providers Care Mattress Stripper Name Role Phone Tu Mcginnis MD Primary Care Provider Encounter Details Date Type Department Care Team (Late st Contact Info) Description 05/06/2025 Prep for Procedure [facility] [address] [place], [place] [id number] Laura Lara FNP [address] [place], [place] [id number] Social History Tobacco Use Types Packs/Day Years Used Date Smoking Tobacco: Former Cigarettes Smokeless Tobacco: Never Alcohol Use Standard Drinks/Week Comments Not Currently 0 (1 standard drink = 0.6 oz pur e alcohol) rarely [facility] Utilities Answer Date Recorded In the past 12 months has e [employer], gas, oil, or water [employer] threatened to shut off services in your [...] money to buy more. Never true 11/10/20 23 Within the past 12 months, t he [...] place to sleep or slept in a prison (including now)? No 11/10/2023 Sex and Gender Information Value Date Recorded Sex Assigned at Male 05/06/2025 1:00 PM CDT Legal Sex Male 4:44 PM CDT Gender Identity Not on file Sexual Orientation Not on file documented as of this encounter Functional Status * Are you deaf or do you have serious difficulty hearing Answer Date of Assessment Author Status No 11/10/2023 2:17 AM Leigh Nicole RN Active * Are you blind or do you have serious difficulty seeing, even when wearing glasses? Answer Date of Assessment Author Status No 11/10/2023 2:17 AM Leigh Nicole RN Active * Do you have serious difficulty walking or climbing stairs? Answer Date of Assessment Author Status No 11/10/2023 2:17 AM Leigh Nicole RN Active * Do you have difficulty dressing or bathing? Answer Date of Assessment Author Status No 11/10/2023 2:17 AM Leigh Nicole RN Active * Because of a physical, mental, or emotional condition, do you have difficulty doing errands alone such as visiting a doctor's office or shopping? Answer Date of Assessment Author Status No 11/10/2023 2:17 AM Leigh Nicole RN Active * Calculated C-SSRS Risk Score (Lifetime/Recent) Answer Date of Assessment Author Status No Risk Indicated 05/06/2025 2:16 PM CDT Nima Melton RN Active * [place] Suicide Severity Rating Scale (Screener/Recent Self-Report) Question Answer Date of Assessment Author Status 1. Wish to be (Past 1 Month) No 05/06/2025 2:16 PM CDT Leigh Melton RN Act chidi 2. Non-Specific Active Suicidal Thoughts (Past 1 Month) No 05/06/2025 2:16 PM CDT Leigh Melton RN Act chidi 6. Suicidal Behavior (Lifetime) No 05/06/2025 2:16 PM CDT Leigh Melton RN Act chidi documented as of this encounter Mental Status * Because of a physical, mental, or emotional condition, do you have serious difficulty concentrating, remembering, or making decisions? Answer Entry Date Author Status No 11/10/2023 2:17 AM Leigh Nicole RN Active documented in this encounter Plan of Treatment Not on file documented as of this encounter Goals Goal Patient Goal Type Associated Problems Recent Progress Patient-Stated? Author Health - patient able to perform ADLs independently General No Marie Candelaria RN documented as of this encounter Results * (ABNORMAL) BASIC METABOLIC PANEL (05/06/2025 1:14 PM CDT) [facility] GLUCOSE 78 70 - 99 MG/DL 05/06/2025 1:56 PM CDT [facility] BUN 23(H) 7 - 18 MG/DL 05/06/2025 1:56 PM CDT [facility] CREATININE S/P/B 1.40(H) 0.7 - 1.3 MG/DL 05/06/2025 1:56 PM CDT [facility] SODIUM S/P/B 141 136 - 145 MMOL/L 05/06/2025 1:56 PM CDT [facility] POTASSIUM S/P/B 4.0 3.5 - 5.1 MMOL/L 05/06/2025 1:56 PM CDT [facility] CHLORIDE S/P/B 108 97 - 115 MMOL/L 05/06/2025 1:56 PM CDT [facility] CO2 28.0 21 - 32 MMOL/L 05/06/2025 1:56 PM CDT [facility] CALCIUM S/P/B 9.5 8.5 - 10.1 MG/DL 05/06/2025 1:56 PM CDT [facility] ANION GAP 5.0 2 - 10 MMOL/L 05/06/2025 1:56 PM CDT [facility] BUN CREATININE RATIO 16.4 6 - 26 05/06/2025 1:56 PM T [facility] GFR ESTIMATE 52(L) >90 ML/MIN/1.7 3 M2 05/06/2025 1:56 PM CDT [facility] Comment: NOTE: eGFR is not calculated for patients <18 years of age or gender unknown. This is an estimated GFR calculation using the new CKD EPI creatinine equation without race and so does not require a correction factor for race. This estimated GFR should not be used for calculating drug doses. 05/06/2025 1:14 PM CDT us Laura Lara TABLE GAMES DUAL RATE SUPERVISOR LABORATORY Final R esult [facility] [address] [place] [address], [place] [phone] * (ABNORMAL) CBC W/DIFF AUTOMATED (05/06/2025 1:14 PM CDT) [facility] WBC 9.23 4.5 - 11.0 x10'3/uL 05/06/2025 1:34 PM CDT [facility] RBC 4.41(L) 4.70 - 6.10 x10'6/uL 05/06/2025 1:34 PM CDT [facility] HGB 14.2 14.0 - 18.0 G/DL 05/06/2025 1:34 PM CDT [facility] HCT 41.9(L) 43.0 - 54.0 % 05/06/2025 1:34 PM CDT [facility] MCV 95.0(H) 80.0 - 94.0 FL 05/06/2025 1:34 PM CDT [facility] MCH 32.2(H) 27.0 - 31.0 PG 05/06/2025 1:34 PM CDT [facility] MCHC 33.9 32.0 - 36.0 G/DL 05/06/2025 1:34 PM CDT [facility] RDW 13.2 11.5 - 14.5 % 05/06/2025 1:34 PM CDT [facility] PLT 181 130 - 400 x10'3/uL 05/06/2025 1:34 PM CDT [facility] MPV 11.3 9.3 - 12.2 FL 05/06/2025 1:34 PM CDT [facility] DIFFERENTIAL TYPE AUTOMATED DIFFERENTIAL 05/06/2025 1:34 PM CDT [facility] NEUTROPHILS % 55.9 % 05/06/2025 1:34 PM CDT [facility] LYMPHOCYTES % 29.0 % 05/06/2025 1:34 PM CDT [facility] MONOCYTES % 10.0 % 05/06/2025 1:34 PM CDT [facility] EOSINOPHILS 4.3 % 05/06/2025 1:34 PM CDT [facility] BASOPHILS 0.5 % 05/06/2025 1:34 PM CDT [facility] IMMATURE GRANS % 0.3 % 05/06/20 1:34 PM CDT [facility] ABS. NEUTROPHILS 5.15 1.80 - 7.70 x10'3/uL 05/06/2025 1:34 PM CDT [facility] ABS. LYMPHOCYTES 2.68 1.00 - 4.80 x10'3/uL 05/06/2025 1:34 PM CDT [facility] ABS. MONOCYTES 0.92(H) 0.30 - 0.82 x10'3/uL 05/06/2025 1:34 PM CDT [facility] ABS. EOSINOPHILS 0.40 0.04 - 0.54 x10'3/uL 05/06/2025 1:34 PM CDT [facility] ABS. BASOPHILS 0.05 0.01 - 0.08 x10'3/uL 05/06/2025 1:34 PM CDT [facility] ABS. IMMATURE GRANULOCYTES 0.03 0.00 - 0.49 x10'3/uL 05/06/2025 1:34 PM CDT [facility] 05/06/2025 1:14 PM CDT us Laura Lara [employer] SUPERVIS[employer] LABORATORY Final R esult [facility] [address] [place] [address], [place] [phone] * (ABNORMAL) URINALYSIS (05/06/2025 1:10 PM CDT) SPECIMEN TYPE URINE CLEAN CATCH 05/06/2025 1:04 PM CDT [facility] COLOR (U) YELLOW 05/06/2025 1:37 PM CDT [facility] TRANSPARENCY CLEAR 05/06/2025 1:37 PM CDT [facility] SPECIFIC GRAVITY (U) 1.019 1.001 - 1.030 05/06/2025 1:37 PM CDT [facility] U PH 6.0 5.0 - 9.0 05/06/2025 1:37 PM CDT [facility] LEUKOCYTES (U) NEGATIVE NEGATIVE 05/06/2025 1:37 PM CDT [facility] NITRITES NEGATIVE NEGATIVE 05/06/2025 1:37 PM CDT [facility] PROTEIN RANDOM (U) NEGATIVE <30 MG/DL 05/06/2025 1:37 PM CDT [facility] GLUCOSE (U) 200(A) NORMAL MG/DL 05/06/2025 1:37 PM CDT [facility] KETONES MG/DL (U) NEGATIVE NEGATIVE MG/DL 05/06/2025 1:37 PM CDT [facility] UROBILINOGEN NORMAL NORMAL MG/DL 05/06/2025 1:37 PM CDT [facility] BILIRUBIN (U) NEGATIVE NEGATIVE MG/DL 05/06/2025 1:37 PM CDT [facility] BLOOD (U) NEGATIVE NEGATIVE 05/06/2025 1:37 PM CDT [facility] URINE SPECIMEN OBTAINED BY CLEAN CATCH PROCEDURE / Unknown 05/06/2025 1:10 PM CDT Eric Garcia MD URINE ORDERABLES Final Result [facility] [address] [place] [address], [place] [phone] documented in this encounter Visit Diagnoses Diagnosis Preop examination- Primary Preoperative examination, unspecified Elevated PSA Elevated prostate specific antigen (PSA) Lesion of bladder Unspecified disorder of bladder documented in this encounter Care Teams Mattress Stripper Relationship Specialty Start Date End Date Tu Mcginnis MD [address] [address] PCP - General Internal Medicine - Infectious Disease 05/06/25 documented as of this encounter
--- OUTSIDE RECORDS SUMMARY | 2025-06-08 07:33 | XMS_ITS | Encounter Summary ---
Author Organization [facility] Address [facility] [place] [address] Care Team Providers Care Wrapper Hands Sprayer Name Role Phone Tu Mcginnis MD Primary Care Provider [phone] Encounter Details Date Type Department Care Team (Late st Contact Info) Description 04/28/2025 Create Message Enc [facility] Pre[place] [address] Mychart, [facility] Provider Please call us Social History Tobacco Use Types Packs/Day Years Used Date Smoking Tobacco: Never Smokeless Tobacco: Never Alcohol Use Standard Drinks/Week Comments Yes 0 (1 standard drink = 0.6 oz pur e alcohol) rarely [facility] Utilities Answer Date Recorded In the past 12 months has [facility] [employer], gas, oil, or water [employer] threatened to shut off services in your [...] place to sleep or slept in a care home (including now)? No 11/10/2023 Sex and Gender [...] 2:17 AM Leigh Nicole RN Active documented as of this encounter Mental Status [...] Candelaria RN documented as of this encounter Visit Diagnoses Not on filedocumented in this encounter Care Teams Wrapper Hands Sprayer Relationship Specialty Start Date End Date Tu Mcginnis MD [address] [address] PCP - General Internal Medicine - Infectious Disease 05/06/25 documented as of this encounter
--- OUTSIDE RECORDS SUMMARY | 2025-06-08 07:33 | XMS_ITS ---
Author Organization [facility] Address [address] [address] Care Team Providers Care Medical And Health Services Manager Name Role Phone Provider, Outside Primary Care Provider [phone] [employer] Service Status:Enrolled Start date:10/17/2023 Related program episode:Enrollments () Continued Care and Services Coordination
--- OUTSIDE RECORDS SUMMARY | 2025-06-08 07:33 | XMS_ITS ---
Author Organization [facility] Address [address] [facility] [address] [place], [place] [id number] Care Team Providers Care Mixed Signal Design Engineer Name Role Phone AMALIA MCGINNIS Primary Care Provider REASON FOR VISIT 3 month f/u Encounters Encounter Location Date Provider Diagnosis [address] [place], [place] [id number] 06/03/2025 AMALIA MCGINNIS Plan Of Treatment No Information Progress Notes * Jas BRAGADOB:1945 (79 yo M)Acc No.[id number]:06/03/2025 Progress Notes Patient: Jas BARFIELD Provider: Lisa Mcginnis M.D. :1945 A ge:79 Y S ex:Male Date:06/03/2025 Address:[facility] [facility] [place], [phone] Subjective: * Chief Complaints: * 1 . 3 month f/u. * Medical History: Objective: * Vitals: Assessment: Plan: * Treatment: * Billing Information: * Visit Code: * Procedure Codes: * Electronic signature of JAIME MCGINNIS MD on 06/08/2025 at 07:32 AM CDT Sign off status: Pending * Provider: Lisa Mcginnis M.D. Date: 06/03/2025 Generated for Dre hannah/Cameron/eTalireza on: 06/08/2025 07:32 AM CDT
--- OUTSIDE RECORDS SUMMARY | 2025-06-08 07:33 | XMS_ITS | Patient Health Record ---
Author Organization [facility] Address [address] [place], [place] [id number] Care Team Providers Care Pilot Captain Name Role Phone AMALIA ESQUIVEL Primary Care Provider [phone] Allergies No Known Allergies Results Component Value Reference Range Notes HIV 1 RNA, QUANTITATIVE REAL TIME PCR (37606) Reviewed date:10/15/2024 04:03:43 PM Interpretation: Performing Lab:Pearl DE JESUS-[id number] Attila WymanaKS[address] Ian Romero MD Notes/Report: FASTING:NO FASTING: NO HIV 1 RNA, QN PCR NOT DETECTED NOT DETECTED copies/mL HIV 1 RNA, QN PCR NOT DETECTED NOT DETECTED L og copies/mL This test was performed using Real-Time Polymerase Chain Reaction. Reportable Range: 20 copies/mL to 10,000,000 copies/mL (1.30 log copies/mL to 7.00 log copies/mL). PSA, TOTAL (5363) Reviewed date:10/14/2024 07:50:26 AM Interpretation: Performing Lab:Pearl DE JESUS-[id number] Attila WymanaKS[address] Ian Romero MD Notes/Report: FASTING:NO FASTING: NO PSA, TOTAL 7.38 < OR = 4.00 ng/mL The total PSA value from this assay system is standardized against the WHO standard. The test result will be approximately 20% lower when compared to the equimolar-standardized total PSA (Rahul Jay). Comparison of serial PSA results should be interpreted with this fact in mind. This test was performed using the Siemens chemiluminescent method. Values obtained from different assay methods cannot be used interchangeably. PSA levels, regardless of value, should not be interpreted as absolute evidence of the presence or absence of disease. HEMOGLOBIN A1c (496) Reviewed date:10/14/2024 07:57:14 AM Interpretation: Performing Lab:Pearl DE JESUS-[id number] Attila WymanaKS[address] Ian Romero MD Notes/Report: FASTING:NO FASTING: NO HEMOGLOBIN A1c 8.0 <5.7 % of total Hgb For someone without known diabetes, a hemoglobin A1c value of 6.5% or greater indicates that they may have diabetes and this should be confirmed with a follow-up test. For someone with known diabetes, a value <7% indicates that their diabetes is well controlled and a value greater than or equal to 7% indicates suboptimal control. A1c targets should be individualized based on duration of diabetes, age, comorbid conditions, and other considerations. Currently, no consensus exists regarding use of hemoglobin A1c for diagnosis of diabetes for children. HIV 1 RNA, QUANTITATIVE REAL TIME PCR (96750) Reviewed date:03/05/2025 04:09:40 PM Interpretation: Performing Lab:Pearl DE JESUS-[id number] Attila WymanaKS[address] Ian Romero MD Notes/Report: FASTING:NO FASTING: NO HIV 1 RNA, QN PCR <20 DETECTED NOT DETECTED copies/mL HIV 1 RNA, QN PCR <1.30 DETECTED NOT DETECTED L og copies/mL HIV-1 RNA was detected below 20 copies/mL. Viral nucleic acid detected below this level cannot be quantified by the assay. This test was performed using Real-Time Polymerase Chain Reaction. Reportable Range: 20 copies/mL to 10,000,000 copies/mL (1.30 log copies/mL to 7.00 log copies/mL). PSA, TOTAL (5363) Reviewed date:03/08/2025 11:50:07 AM Interpretation: Performing Lab:Pearl DE JESUSexa10101 Chris WymanLfffbwRX[address] Ian Romero MD Notes/Report: FASTING:NO FASTING: NO PSA, TOTAL 12.26 < OR = 4.00 ng/mL The total PSA value from this assay system is standardized against the WHO standard. The test result will be approximately 20% lower when compared to the equimolar-standardized total PSA (Rahul [place]). Comparison of serial PSA results should be interpreted with this fact in mind. This test was performed using the Siemens chemiluminescent method. Values obtained from different assay methods cannot be used interchangeably. PSA levels, regardless of value, should not be interpreted as absolute evidence of the presence or absence of disease. HEMOGLOBIN A1c (496) Reviewed date:03/05/2025 10:46:42 AM Interpretation: Performing Lab:NEAL NavigatorMD-Upxyld71203 Lucía Still, BdjquaKI[address] Ian Romero MD Notes/Report: FASTING:NO FASTING: NO HEMOGLOBIN A1c 6.6 <5.7 % of total Hgb For someone without known diabetes, a hemoglobin A1c value of 6.5% or greater indicates that they may have diabetes and this should be confirmed with a follow-up test. For someone with known diabetes, a value <7% indicates that their diabetes is well controlled and a value greater than or equal to 7% indicates suboptimal control. A1c targets should be individualized based on duration of diabetes, age, comorbid conditions, and other considerations. Currently, no consensus exists regarding use of hemoglobin A1c for diagnosis of diabetes for children. COMPREHENSIVE METABOLIC PANE L (39901) Reviewed date:03/05/2025 08:48:49 AM Interpretation: Performing Lab:NEAL NavigatorMD-Hulvbu42794 Lucía Still, LvtxlgDA[address] Ian Romero MD Notes/Report: FASTING: NO FASTING:NO GLUCOSE 177 65-139 mg/dL Non-fasting reference interval UREA NITROGEN (BUN) 26 7-25 mg/dL CREATININE 1.29 0.70-1.28 mg/dL EGFR 57 > OR = 60 mL/min/1.73m2 BUN/CREATININE RATIO 20 6-22 (calc) SODIUM 138 135-146 mmol/L POTASSIUM 4.8 3.5-5.3 mmol/L CHLORIDE 102 98-110 mmol/L CARBON DIOXIDE 27 20-32 mmol/L CALCIUM 9.6 8.6-10.3 mg/dL PROTEIN, TOTAL 7.4 6.1-8.1 g/dL ALBUMIN 4.8 3.6-5.1 g/dL GLOBULIN 2.6 1.9-3.7 g/dL (calc) ALBUMIN/GLOBULIN RATIO 1.8 1.0-2.5 (calc) BILIRUBIN, TOTAL 1.3 0.2-1.2 mg/dL ALKALINE PHOSPHATASE 61 35-144 U/L AST 14 10-35 U/L ALT 23 9-46 U/L LIPID PANEL, STANDARD (7600) Reviewed date:03/05/2025 09:59:08 AM Interpretation: Performing Lab:NEAL [employer] Janny-Ieyfvx25548 Lucía Still, HljzokEO[address] Ian Romero MD Notes/Report: FASTING:NO FASTING: NO CHOLESTEROL, TOTAL 100 <200 mg/dL HDL CHOLESTEROL 35 > OR = 40 mg/dL TRIGLYCERIDES 110 <150 mg/dL LDL-CHOLESTEROL 45 Reference range: <100 Desirable range <100 mg/dL for primary prevention; <70 mg/dL for patients with CHD or diabetic patients with > or = 2 CHD risk factors. LDL-C is now calculated using the Navid calculation, which is a validated novel method providing better accuracy than the Friedewald equation in the estimation of LDL-C. Luciano DE LA TORRE et al. YOHAN. 2013;310(19): 4837-2767 (http://education.Folloyu/faq/NQP019) CHOL/HDLC RATIO 2.9 <5.0 (calc) NON HDL CHOLESTEROL 65 <130 mg/dL (calc) For patients with diabetes plus 1 major ASCVD risk factor, treating to a non-HDL-C goal of <100 mg/dL (LDL-C of <70 mg/dL) is considered a therapeutic option. LYMPHOCYTE SUBSET PANEL 3 (7 195) Reviewed date:10/14/2024 09:41:30 PM Interpretation: Performing Lab:Pearl ASHER-Misael [id number] Roxanne [facility], Misael BrownVhlxJD[address] Frantz Scales Notes/Report: FASTING:NO FASTING: NO % CD3 (MATURE T CELLS) 75 57-85 % ABSOLUTE CD3+ CELLS 2117 840-3060 cells/uL % CD4 30 30-61 % ABSOLUTE CD4+ CELLS 865 296-7070 cells/uL % CD8 45 12-42 % ABSOLUTE CD8+ CELLS 3763 490-0171 cells/uL CD4/CD8 RATIO 0.66 0.86-5.00 ABSOLUTE LYMPHOCYTES 2826 850-3900 cells/uL CBC (INCLUDES DIFF/PLT) (639 9) Reviewed date:10/14/2024 07:48:07 AM Interpretation: Performing Lab:KS, NavigatorMD-Ikfqyw32956 Lucía Still, QwqrleGE[address] Ian Romero MD Notes/Report: FASTING:NO FASTING: NO WHITE BLOOD CELL COUNT 9.0 3.8-10.8 Thousand/ uL RED BLOOD CELL COUNT 4.81 4.20-5.80 Million/uL HEMOGLOBIN 15.4 13.2-17.1 g/dL HEMATOCRIT 45.6 38.5-50.0 % MCV 94.8 80.0-100.0 fL MCH 32.0 27.0-33.0 pg MCHC 33.8 32.0-36.0 g/dL For adults, a slight decrease in the calculated MCHC value (in the range of 30 to 32 g/dL) is most likely not clinically significant; however, it should be interpreted with caution in correlation with other red cell parameters and the patient's clinical condition. RDW 13.2 11.0-15.0 % PLATELET COUNT 203 140-400 Thousand/uL MPV 12.0 7.5-12.5 fL ABSOLUTE NEUTROPHILS 5301 0036-7712 cells/uL ABSOLUTE LYMPHOCYTES 2628 850-3900 cells/uL ABSOLUTE MONOCYTES 648 200-950 cells/uL ABSOLUTE EOSINOPHILS 387 15-500 cells/uL ABSOLUTE BASOPHILS 36 0-200 cells/uL NEUTROPHILS 58.9 LYMPHOCYTES 29.2 MONOCYTES 7.2 EOSINOPHILS 4.3 BASOPHILS 0.4 COMPREHENSIVE METABOLIC PANE (61444) Reviewed date:10/14/2024 07:51:01 AM Interpretation: Performing Lab:NEAL NavigatorMD-Popwun90034 Lucía Still, [id number] Ian Romero MD Notes/Report: FASTING:NO FASTING: NO GLUCOSE 138 65-139 mg/dL Non-fasting reference interval UREA NITROGEN (BUN) 22 7-25 mg/dL CREATININE 1.32 0.70-1.28 mg/dL EGFR 56 > OR = 60 mL/min/1.73m2 BUN/CREATININE RATIO 17 6-22 (calc) SODIUM 135 135-146 mmol/L POTASSIUM 4.4 3.5-5.3 mmol/L CHLORIDE 105 98-110 mmol/L CARBON DIOXIDE 27 20-32 mmol/L CALCIUM 9.6 8.6-10.3 mg/dL PROTEIN, TOTAL 7.3 6.1-8.1 g/dL ALBUMIN 4.4 3.6-5.1 g/dL GLOBULIN 2.9 1.9-3.7 g/dL (calc) ALBUMIN/GLOBULIN RATIO 1.5 1.0-2.5 (calc) BILIRUBIN, TOTAL 1.5 0.2-1.2 mg/dL ALKALINE PHOSPHATASE 73 35-144 U/L AST 14 10-35 U/L ALT 14 9-46 U/L LIPID PANEL, STANDARD (7600) Reviewed date:10/14/2024 07:53:22 AM Interpretation: Performing Lab:NEAL [employer] Janny-[id number] Chris WymanQtagnwZB[address] Ian Romero MD Notes/Report: FASTING:NO FASTING: NO CHOLESTEROL, TOTAL 108 <200 mg/dL HDL CHOLESTEROL 36 > OR = 40 mg/dL TRIGLYCERIDES 87 <150 mg/dL LDL-CHOLESTEROL 55 Reference range: <100 Desirable range <100 mg/dL for primary prevention; <70 mg/dL for patients with CHD or diabetic patients with > or = 2 CHD risk factors. LDL-C is now calculated using the Luciano-Rust calculation, which is a validated novel method providing better accuracy than the Friedewald equation in the estimation of LDL-C. Luciano SS et al. YOHAN. 2013;310(19): 0751-4791 (http://education.Folloyu/faq/DVK124) CHOL/HDLC RATIO 3.0 <5.0 (calc) NON HDL CHOLESTEROL 72 <130 mg/dL (calc) For patients with diabetes plus 1 major ASCVD risk factor, treating to a non-HDL-C goal of <100 mg/dL (LDL-C of <70 mg/dL) is considered a therapeutic option. CHLAMYDIA/N. GONORRHOEAE RNA , TMA, RECTAL (20935) Reviewed date:07/21/2024 06:00:25 PM Interpretation: Performing Lab:Pearl DE JESUS-Nkllfw22029 Chris WymanDlfwowEV[address] Ian Romero MD Notes/Report: SPLIT 07/20/2024 FROM [id number] FASTING:UNKNOWN FASTING: UNKNOWN CHLAMYDIA TRACHOMATIS RNA, TMA, RECTAL NOT DETECTED NOT DETECTED NEISSERIA GONORRHOEAE RNA, TMA, RECTAL NOT DETECTED NOT DETECTED COMMENT The analytical performance characteristics of this assay have been determined by NavigatorMD. The modifications have not been cleared or approved by the FDA. This assay has been validated pursuant to the CLIA regulations and is used for clinical purposes. CHLAMYDIA/N. GONORRHOEAE RNA , TMA, THROAT (73212) Reviewed date:07/21/2024 06:00:18 PM Interpretation: Performing Lab:Pearl DE JESUS-Epxyjr39042 Attila WymanaKS[address] Ian Romero MD Notes/Report: SPLIT 07/20/2024 FROM [id number] FASTING:UNKNOWN FASTING: UNKNOWN CHLAMYDIA TRACHOMATIS RNA, TMA, THROAT NOT DETECTED NOT DETECTED NEISSERIA GONORRHOEAE RNA, TMA, THROAT NOT DETECTED NOT DETECTED COMMENT The analytical performance characteristics of this assay have been determined by NavigatorMD. The modifications have not been cleared or approved by the FDA. This assay has been validated pursuant to the CLIA regulations and is used for clinical purposes. CHLAMYDIA/N. GONORRHOEAE RNA , TMA, URINE (11424) Reviewed date:07/21/2024 11:47:21 AM Interpretation: Performing Lab:Pearl DE JESUS-Mfygke31044Elke Still, PfdjjbZM[address] Ian Romero MD Notes/Report: FASTING:NO SPECIMEN COLLECTED AT PROVIDER OFFICE. FASTING: NO CHLAMYDIA TRACHOMATIS RNA, TMA, UROGENITAL NOT DETECTED NOT DETECTED NEISSERIA GONORRHOEAE RNA, TMA, UROGENITAL NOT DETECTED NOT DETECTED COMMENT The analytical performance characteristics of this assay, when used to test SurePath(TM) specimens have been determined by NavigatorMD. The modifications have not been cleared or approved by the FDA. This assay has been validated pursuant to the CLIA regulations and is used for clinical purposes. For additional information, please refer to https://education.Sprout Route/faq/CDT582 (This link is being provided for information/ educational purposes only.) HIV 1 RNA, QUANTITATIVE REAL TIME PCR (11101) Reviewed date:07/23/2024 07:52:56 AM Interpretation: Performing Lab:Pearl DE JESUS-Mhhfjo70628Elke Still, JkhiloTJ[address] Ian Romero MD Notes/Report: FASTING:NO SPECIMEN COLLECTED AT PROVIDER OFFICE. FASTING: NO HIV 1 RNA, QN PCR NOT DETECTED NOT DETECTED copies/mL HIV 1 RNA, QN PCR NOT DETECTED NOT DETECTED L og copies/mL This test was performed using Real-Time Polymerase Chain Reaction. Reportable Range: 20 copies/mL to 10,000,000 copies/mL (1.30 log copies/mL to 7.00 log copies/mL). HEPATITIS C AB W/REFL TO HCV RNA, QN, PCR (8472) Reviewed date:07/21/2024 09:20:26 AM Interpretation: Performing Lab:Pearl DE JESUSa101Fredo Bush[address] Ian Romero MD Notes/Report: FASTING:NO SPECIMEN COLLECTED AT PROVIDER OFFICE. FASTING: NO HEPATITIS C ANTIBODY NON-REACTIVE NON-REACTIVE HCV antibody was non-reactive. There is no laboratory evidence of HCV infection. In most cases, no further action is required. However, if recent HCV exposure is suspected, a test for HCV RNA (test code 67901) is suggested. For additional information please refer to http://education.Video Passports/faq/QZA98o6 (This link is being provided for informational/ educational purposes only.) PSA, TOTAL (5363) Reviewed date:07/24/2024 02:57:31 PM Interpretation: Performing Lab:Pearl DE JESUSa101Attila BushaKS[address] Ian Romero MD Notes/Report: FASTING:NO SPECIMEN COLLECTED AT PROVIDER OFFICE. FASTING: NO PSA, TOTAL 7.61 < OR = 4.00 ng/mL The total PSA value from this assay system is standardized against the WHO standard. The test result will be approximately 20% lower when compared to the equimolar-standardized total PSA (Rahul Jay). Comparison of serial PSA results should be interpreted with this fact in mind. This test was performed using the Siemens chemiluminescent method. Values obtained from different assay methods cannot be used interchangeably. PSA levels, regardless of value, should not be interpreted as absolute evidence of the presence or absence of disease. HEMOGLOBIN A1c (496) Reviewed date:07/24/2024 02:59:20 PM Interpretation: Performing Lab:Pearl DE JESUSa10101 Attila WymanaKS[address] Ian Romero MD Notes/Report: FASTING:NO SPECIMEN COLLECTED AT PROVIDER OFFICE. FASTING: NO HEMOGLOBIN A1c 9.3 <5.7 % of total Hgb For someone without known diabetes, a hemoglobin A1c value of 6.5% or greater indicates that they may have diabetes and this should be confirmed with a follow-up test. For someone with known diabetes, a value <7% indicates that their diabetes is well controlled and a value greater than or equal to 7% indicates suboptimal control. A1c targets should be individualized based on duration of diabetes, age, comorbid conditions, and other considerations. Currently, no consensus exists regarding use of hemoglobin A1c for diagnosis of diabetes for children. This test was performed on the Meeta uli c503 platform. Effective 02/10/24, a change in test platforms from the Fierro Zipper Ironer to the Meeta uli c503 may have shifted HbA1c results compared to historical results. Based on laboratory validation testing conducted at [facility], the Meeta platform relative to the Fierro platform had an average increase in HbA1c value of < or = 0.3%. This difference is within accepted variability established by the National Glycohemoglobin Standardization Program. Note that not all individuals will have had a shift in their results and direct comparisons between historical and current results for testing conducted on different platforms is not recommended. LYMPHOCYTE SUBSET PANEL 3 (7 195) Reviewed date:07/23/2024 07:49:23 AM Interpretation: Performing Lab:LB NavigatorMD-Misael Elgb4263 [facility] [place], Misael XgjpQH[address] Frantz Scales Notes/Report: FASTING:NO SPECIMEN COLLECTED AT PROVIDER OFFICE. FASTING: NO % CD3 (MATURE T CELLS) 74 57-85 % ABSOLUTE CD3+ CELLS 2437 498-1832 cells/uL % CD4 27 30-61 % ABSOLUTE CD4+ CELLS 691 715-8040 cells/uL % CD8 47 12-42 % ABSOLUTE CD8+ CELLS 8490 531-6202 cells/uL CD4/CD8 RATIO 0.58 0.86-5.00 ABSOLUTE LYMPHOCYTES 2476 850-3900 cells/uL RPR (MONITOR) W/REFL TITER ( 799) Reviewed date:07/22/2024 02:07:45 PM Interpretation: Performing Lab:NEAL NavigatorMD-Oyqkwg27837 Lucía [facility], GodlwvUX[address] Ian Romero MD Notes/Report: FASTING:NO SPECIMEN COLLECTED AT PROVIDER OFFICE. FASTING: NO RPR (MONITOR) W/REFL TITER NON-REACTIVE NON-REACTIVE CBC (INCLUDES DIFF/PLT) (639 9) Reviewed date:07/21/2024 07:23:40 AM Interpretation: Performing Lab:Pearl DE JESUS-Pvyjhx46737 Chris WymanBifmhoVP[address] Ian Romero MD Notes/Report: FASTING:NO SPECIMEN COLLECTED AT PROVIDER OFFICE. FASTING: NO WHITE BLOOD CELL COUNT 10.1 3.8-10.8 Thousand/ uL RED BLOOD CELL COUNT 4.98 4.20-5.80 Million/uL HEMOGLOBIN 15.6 13.2-17.1 g/dL HEMATOCRIT 47.6 38.5-50.0 % MCV 95.6 80.0-100.0 fL MCH 31.3 27.0-33.0 pg MCHC 32.8 32.0-36.0 g/dL RDW 13.0 11.0-15.0 % PLATELET COUNT 202 140-400 Thousand/uL MPV 12.0 7.5-12.5 fL ABSOLUTE NEUTROPHILS 6525 1058-1294 cells/uL ABSOLUTE LYMPHOCYTES 2101 850-3900 cells/uL ABSOLUTE MONOCYTES 859 200-950 cells/uL ABSOLUTE EOSINOPHILS 556 15-500 cells/uL ABSOLUTE BASOPHILS 61 0-200 cells/uL NEUTROPHILS 64.6 LYMPHOCYTES 20.8 MONOCYTES 8.5 EOSINOPHILS 5.5 BASOPHILS 0.6 COMPREHENSIVE METABOLIC PANE L (79153) Reviewed date:07/21/2024 09:13:57 AM Interpretation: Performing Lab:Pearl DE JESUS-Ahvrzt77375 Lucía Still, RvxvtdTH[address] Ian Romero MD Notes/Report: FASTING:NO SPECIMEN COLLECTED AT PROVIDER OFFICE. FASTING: NO GLUCOSE 175 65-139 mg/dL Non-fasting reference interval UREA NITROGEN (BUN) 19 7-25 mg/dL CREATININE 1.55 0.70-1.28 mg/dL EGFR 46 > OR = 60 mL/min/1.73m2 BUN/CREATININE RATIO 12 6-22 (calc) SODIUM 137 135-146 mmol/L POTASSIUM 4.3 3.5-5.3 mmol/L CHLORIDE 100 98-110 mmol/L CARBON DIOXIDE 30 20-32 mmol/L CALCIUM 10.0 8.6-10.3 mg/dL PROTEIN, TOTAL 7.9 6.1-8.1 g/dL ALBUMIN 4.6 3.6-5.1 g/dL GLOBULIN 3.3 1.9-3.7 g/dL (calc) ALBUMIN/GLOBULIN RATIO 1.4 1.0-2.5 (calc) BILIRUBIN, TOTAL 1.9 0.2-1.2 mg/dL ALKALINE PHOSPHATASE 87 35-144 U/L AST 21 10-35 U/L ALT 26 9-46 U/L LIPID PANEL, STANDARD (7600) Reviewed date:07/21/2024 09:14:02 AM Interpretation: Performing Lab:NEAL NavigatorMD-Dudvwz23990 Lucía Still, SvckvgDB[address] Ian Romero MD Notes/Report: FASTING:NO SPECIMEN COLLECTED AT PROVIDER OFFICE. FASTING: NO CHOLESTEROL, TOTAL 95 <200 mg/dL HDL CHOLESTEROL 41 > OR = 40 mg/dL TRIGLYCERIDES 64 <150 mg/dL LDL-CHOLESTEROL 40 Reference range: <100 Desirable range <100 mg/dL for primary prevention; <70 mg/dL for patients with CHD or diabetic patients with > or = 2 CHD risk factors. LDL-C is now calculated using the Luciano-Rust calculation, which is a validated novel method providing better accuracy than the Friedewald equation in the estimation of LDL-C. Luciano SS et al. YOHAN. 2013;310(19): 9742-4678 (http://[employer].Folloyu/faq/DUA301) CHOL/HDLC RATIO 2.3 <5.0 (calc) NON HDL CHOLESTEROL 54 <130 mg/dL (calc) For patients with diabetes plus 1 major ASCVD risk factor, treating to a non-HDL-C goal of <100 mg/dL (LDL-C of <70 mg/dL) is considered a therapeutic option. ALBUMIN, RANDOM URINE W/CREA TINA (6517) Reviewed date:07/23/2024 07:54:57 AM Interpretation: Performing Lab:NEAL NavigatorMD-Usxcjo34109 Lucía Still, IsryyuSI[address] Ian Romero MD Notes/Report: FASTING:NO SPECIMEN COLLECTED AT PROVIDER OFFICE. FASTING: NO CREATININE, RANDOM URINE 112 20-320 mg/dL ALBUMIN, URINE 9.4 See Note: mg/dL Reference Range: Reference Range Not established ALBUMIN/CREATININE RATIO, RANDOM URINE 84 <30 mg/g creat The ADA defines abnormalities in albumin excretion as follows: Albuminuria Category Result (mg/g creatinine) Normal to Mildly increased <30 Moderately increased 30-299 Severely increased > OR = 300 The ADA recommends that at least two of three specimens collected within a 3-6 month period be abnormal before considering a patient to be within a diagnostic category. LYMPHOCYTE SUBSET PANEL 3 (7 195) Reviewed date:03/08/2025 07:39:33 AM Interpretation: Performing Lab:Pearl ASHER [employer] Sqkb2676 [facility], Misael BrownWyzzOR[address] Frantz Scales Notes/Report: FASTING:NO FASTING: NO % CD3 (MATURE T CELLS) 79 57-85 % ABSOLUTE CD3+ CELLS 3506 553-4945 cells/uL % CD4 36 30-61 % ABSOLUTE CD4+ CELLS 057 379-3976 cells/uL % CD8 43 12-42 % ABSOLUTE CD8+ CELLS 623 840-7243 cells/uL CD4/CD8 RATIO 0.84 0.86-5.00 ABSOLUTE LYMPHOCYTES 6115 205-9429 cells/uL CBC (INCLUDES DIFF/PLT) (639 9) Reviewed date:03/05/2025 08:18:42 AM Interpretation: Performing Lab:NEAL NavigatorMD-Ryvfbz32404 Lucía [facility], YyluzgRE[address] Ian Romero MD Notes/Report: FASTING:NO FASTING: NO WHITE BLOOD CELL COUNT 5.7 3.8-10.8 Thousand/ uL RED BLOOD CELL COUNT 4.52 4.20-5.80 Million/uL HEMOGLOBIN 14.5 13.2-17.1 g/dL HEMATOCRIT 43.5 38.5-50.0 % MCV 96.2 80.0-100.0 fL MCH 32.1 27.0-33.0 pg MCHC 33.3 32.0-36.0 g/dL For adults, a slight decrease in the calculated MCHC value (in the range of 30 to 32 g/dL) is most likely not clinically significant; however, it should be interpreted with caution in correlation with other red cell parameters and the patient's clinical condition. RDW 13.1 11.0-15.0 % PLATELET COUNT 173 140-400 Thousand/uL MPV 12.5 7.5-12.5 fL ABSOLUTE NEUTROPHILS 2770 9801-3925 cells/uL ABSOLUTE LYMPHOCYTES 2046 850-3900 cells/uL ABSOLUTE MONOCYTES 576 200-950 cells/uL ABSOLUTE EOSINOPHILS 285 15-500 cells/uL ABSOLUTE BASOPHILS 23 0-200 cells/uL NEUTROPHILS 48.6 LYMPHOCYTES 35.9 MONOCYTES 10.1 EOSINOPHILS 5.0 BASOPHILS 0.4 Reason For Referral Reason REFERRAL TO UROLOGY Diagnosis 1 Elevated PSA (R97.20 ) Referral Organization [facility] Referring Provider First Name AMALIA Referring Provider Last Name HARTFORD Referring Provider Speciality Internal edicine Referred Provider Specialty Urology General Notes Lianne Perkins 06/27 03:12:41 PM >FAXED REFERRAL TO [facility] [address] , PH: [phone], FX: [phone], PATIENT SHOULD CALL FOR SCHEDULING, Lianne Perkins 07/28/2024 09:39:33 AM >patient given the number for schedulig Referral Priority Routine Reason Referral to Pain Man agement Diagnosis 1 Cervical spinal sten osis (M48.02) Referral Organization [facility] Referring Provider First Name AMALIA Referring Provider Last Name HARTFORD Referring Provider Speciality Internal edicine Referred Provider Specialty Pain Medicin e Clinical Notes Nichelle García 2023 10:07:53 AM >Referral started, but patient needs updated imaging. MRI Cervical Spine ordered. Will complete referral to Pain Mgmt after imaging is done. Referral Priority Routine Reason MRI Cervical Spine w /o Contrast - CPT 51028 Diagnosis 1 Cervical spinal sten osis (M48.02) Referral Organization [facility] Referring Provider First Name AMALIA Referring Provider Last Name HARTFORD Referring Provider [facility] Referred Provider Specialty Radiology General Notes Nichelle García 2023 09:21:02 AM >Faxing MRI order to [facility] (ph: [phone], fax: [phone]) along with insurance card, prior authorization approval info, and recent office notes., Once faxed, we will call to schedule for the patient. He prefers the [place] location but is ok with whichever can schedule sooner., Nichelle García 10/21/2024 09:25:04 AM >Order faxed., Nichelle García 10/26/2024 10:37:52 AM >Patient is scheduled 11/29/24 at 11:45am with an arrival time of 11:15am at [facility] Refaxing orders to fax: [phone] Katie 10/26/2024 10:40:27 AM >Order faxed., Nichelle García 12/03/2024 10:48:38 AM >Appt was cancelled due to weather. Rescheduled to 12/16/24 at 11:00am. Referral Priority Routine Referral Appointment Date 12/16/2024 Reason Referral to Urology [facility] has location at [facility]. Patient can call to schedule his f/u at the other location. [phone] Diagnosis 1 Benign prostatic hyp erplasia without lower urinary tract symptoms (N40.0) Referral Organization [facility] Referring Provider First Name AMALIA Referring Provider Last Name HARTFORD Referring Provider Speciality Internal M edicine Referred Provider Specialty Urology General Notes Nichelle García 2024 02:58:41 PM >Patient wanted to see a Urologist at [facility]. He was previously seeing Urology of [facility] in [place]. They also have a location at [facility]. Spoke with the office, and patient can just call to schedule his f/u appt at the [facility] location. Spoke with patient. He is happy to see the same provider but at the other location. Provided phone number to call and schedule. Referral Priority Routine Medications Medication SIG (Take, Route, Frequency, Duration) Notes Start Date End Date Status FLUoxetine HCl 20 MG TAKE 3 CAPSULES BY MOUTH EVERY MORNING Active Tadalafil 20 MG Take 1 tablet by jonny th daily as needed Active Gabapentin 300 MG Take 1 Capsule by mo uth 3 (three) times daily Active traZODone HCl 50 MG Take 1 Tablet by jonny th nightly at bedtime as needed Active Losartan Potassium 100 MG TAKE ONE TABLE T BY MOUTH ONCE DAILY Active Pen [place] 32G X 5 MM as directed; Dura tion: 30 days Active Atorvastatin Calcium 80 MG Take 1 tablet (80 mg total) by mouth nightly at bedtime Acti ve Aspirin 81 81 MG 1 tablet Orally Once a day Active Doxycycline Hyclate 100 MG Take 2 capsules after un-protected sexual intercourse with full glass of water. Do not exceed more than once daily. Active Insulin Glargine Solostar 100 UNIT/ML 64 units Subcutaneous daily; Duration: 30 days Active Ozempic (2 MG/DOSE) 8 MG/3ML Inject 2 mg subcutaneously once a week Active Dorzolamide HCl 2 % Ophthalmic; Duration : 33 Days Active Tamsulosin HCl 0.4 MG TAKE ONE CAPSULE B Y MOUTH ONCE DAILY Active Biktarvy 50-200-25 MG TAKE ONE TABLET BY MOUTH ONCE DAILY Active ARIPiprazole 2 MG TAKE ONE TABLET BY M OUTH ONCE DAILY Active amLODIPine Besylate 10 MG 1 tablet Orall y Once a day; Duration: 90 days 03/04/2025 Active Doxycycline Hyclate 100 MG Oral; Duration: 15 Days Acti ve Clopidogrel Bisulfate 75 MG Oral; Duration: 30 Days Acti ve Immunizations Vaccine Route Administration Date Status Comme nts Hep A, Adult Unknown 10/12/2021 Administered Hep A, Adult Unknown 05/10/2022 Administered Hep B, adult (2 dose schedule) Unknown 10/12/2021 Administered Hep B, adult (2 dose schedule) Unknown 05/10/2022 Administered Influenza, quadrivalent, split, preservative free, 3 years or older IM Intramuscular 08/27/2023 Administered Pneumococcal conjugate PCV 13 Unknown 11/17/2013 Administered Pneumococcal polysaccharide PPV23 Unknown 02/28/2016 Administered Td (adult), adsorbed Unknown 03/22/2007 Administered Social History Tobacco Use: Social History Observation Description Date Details (start date - stop date) Current Smoker NA - NA Tobacco Use/Smoking Question Answer Notes Tobacco use: current smoker Are you interested in quitting? Not ready to antwan t PRAPARE Question Answer Notes What is your current housing situation? I have h ousing Are you worried about losing your housing? No What is the highest level of school that you have finished? I choose not to answer this question What is your current work situation? I choose no t to answer this question In the past year, have you o r any family members you live with been unable to get any of the following when it was really needed? Check all that apply Food Has lack of transportation k ept you from medical appointments, meetings, work or from getting things needed for daily living? Yes, it has kept me from medical appointments or from getting my medications,Yes, it has kept me from non-medical meetings, appointments, work, or getting things needed for daily living How often do you see or talk to people that you care about and feel close to? (For example: talking to friends on the phone, visiting friends or family, going to roman catholic or club meetings) I choose not to answer this question How stressed are you? Stress is when someone feels tense, nervous, anxious, or can't sleep at night because their mind is troubled I choose not to answer this question In the past year have you sp ent more than 2 nights in a row in a half-way, long term, chcf center, or juvenile correctional facility? I choose not to answer this question Are you a refugee? No What country are you from? [place] Do you feel physically and e motionally safe where you currently live? Yes In the past year, have you b een afraid of your partner or ex-partner? No PRAPARE Score: 3 Enabling Services Provided? Yes Please specify Case Management Follow-up Section Notes: The patient is retired and h as stable housing and a vehicle. He denies tobacco. He occasionally drinks alcohol and uses marijuana. He uses crystal methamphetamine a couple of times a month. The patient is retired and h as stable housing and a vehicle. He denies tobacco. He occasionally drinks alcohol and uses marijuana. He uses crystal methamphetamine a couple of times a month. The patient is retired and h as stable housing and a vehicle. He denies tobacco. He occasionally drinks alcohol and uses marijuana. He uses crystal methamphetamine a couple of times a week. The patient is retired and h as stable housing and a vehicle. He denies tobacco. He occasionally drinks alcohol and uses marijuana. He uses crystal methamphetamine a couple of times a week, but denies any in over a month. The patient is retired and h as stable housing and a vehicle. He denies tobacco. He occasionally drinks alcohol and uses marijuana. He uses crystal methamphetamine a couple of times a week. The patient is retired and h as stable housing and a vehicle. He denies tobacco. He occasionally drinks alcohol and uses marijuana. He uses crystal methamphetamine a couple of times a week. The patient is retired and h as stable housing and a vehicle. He denies tobacco. He occasionally drinks alcohol and uses marijuana. He uses crystal methamphetamine a couple of times a week. The patient is retired and h as stable housing and a vehicle. He denies tobacco. He occasionally drinks alcohol and uses marijuana. He uses crystal methamphetamine a couple of times a week. The patient is retired and h as stable housing and a vehicle. He denies tobacco. He occasionally drinks alcohol and uses marijuana. He uses crystal methamphetamine a couple of times a week. The patient is retired and h as stable housing and a vehicle. He denies tobacco. He occasionally drinks alcohol and uses marijuana. He uses crystal methamphetamine a couple of times a month. Problems Problem Type SNOMED Code ICD Code Onset Dates Problem Status W/U Status Risk Notes Problem Essential hypertension (49587461) Essential hypertension (I10) 025 Active confirmed Problem Human immunodeficiency virus infection (97950912) Human immunodeficiency virus [HIV] disease (B20) Active confirmed Problem Hyperglycemia due to type 2 diabetes mellitus (884934289703924) Type 2 diabetes mellitus with hyperglycemia (E11.65) Active confirmed Problem Type II diabetes mellitus without complication (978727213) Type 2 diabetes mellitus without complications (E11.9) Active confirmed Problem Essential hypertension (20775129) Essential (primary) hypertension (I10) Active confirmed Problem Erectile dysfunction co-occurrent and due to arterial insufficiency (disorder) (251586625304417) Erectile dysfunction due to arterial insufficiency (N52.01) Active confirmed Problem Long-term current use of insulin (121771023) 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) Active confirmed Problem History of malignant melanoma of the skin (937207090252) Personal history of malignant melanoma of skin (Z85.820) Active confirmed Problem Benign prostatic hypertrophy without outflow obstruction (246782982) Benign prostatic hyperplasia without lower urinary tract symptoms (N40.0) Active confirmed Problem Moderate recurrent major depression (49302847) Moderate episode of recurrent major depressive disorder (F33.1) Active confirmed Problem Methamphetamine abuse (377175146) Methamphetamine abuse (F15.10) Active confirmed Problem Chronic kidney disease stage 3A (disorder) (760912905) Chronic renal impairment, stage 3a (N18.31) Active confirmed Problem Recurrent falls (429207732) Frequent falls (R29.6) Active confirmed Problem Cervical spinal stenosis (82682442) Cervical spinal stenosis (M48.02) Active confirmed Problem Ischemic stroke (272525327) Ischemic stroke (I63.9) Active confirmed Vital Signs Heart Rate 79 /min 04/13/2025 Temperature 97.9 degrees Fahrenheit 04/13/2025 Respiratory Rate 18 /min 04/13/2025 Blood pressure diastolic 76 mm Hg 04/13/2025 Oximetry 97 % 04/13/2025 Height-cm 170.18 cm 04/13/2025 Weight-kg 72.58 kg 04/13/2025 Height 67 in 04/13/2025 Blood pressure systolic 154 mm Hg 04/13/2025 Weight 160.0 lbs 04/13/2025 BMI 25.06 kg/m2 04/13/2025 Encounters Encounter Location Date Provider Diagnosis [address] [place], [place] [id number] 07/20/2024 AMALIA ESQUIVEL Human immunodeficien cy virus [HIV] disease B20 ; Type 2 diabetes mellitus without complications E11.9 ; rodent exterminator (current) use of insulin Z79.4 ; Essential (primary) hypertension I10 ; Pure hypercholesterolemia E78.00 ; Ischemic stroke I63.9 ; 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 ; Moderate episode of recurrent major depressive disorder F33.1 ; Methamphetamine abuse F15.10 ; Exposure to STD Z20.2 and Erectile dysfunction due to arterial insufficiency N52.[address] [place], [place] [id number] 10/13/2024 AMALIA ESQUIVEL Human immunodeficien cy virus [HIV] disease B20 ; Type 2 diabetes mellitus without complications E11.9 ; long-term (current) use of insulin Z79.4 ; Pure hypercholesterolemia E78.00 ; Ischemic stroke I63.9 ; Essential (primary) hypertension I10 ; Chronic renal impairment, stage 3a N18.31 ; Moderate episode of recurrent major depressive disorder F33.1 ; Methamphetamine abuse F15.10 ; 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 ; BPH without urinary obstruction N40.0 and Medically noncompliant Z91.[address] [place], [place] [id number] 03/04/2025 AMALIA ESQUIVEL Essential hypertensi on I10 ; Human immunodeficiency virus [HIV] disease B20 ; Methamphetamine abuse F15.10 ; Type 2 diabetes mellitus without complications E11.9 ; rodent exterminator (current) use of insulin Z79.4 ; Chronic renal impairment, stage 3a N18.31 ; Ischemic stroke I63.9 ; 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 ; Impacted cerumen, bilateral H61.23 ; BPH without urinary obstruction N40.0 ; Medically noncompliant Z91.199 ; Food insecurity Z59.41 and Transportation insecurity Z59.82 [facility] [address] [place], [place] [id number] 04/13/2025 [facility] Essential hypertensi on I10 ; Paronychia of toe of right foot L03.031 ; Type 2 diabetes mellitus without complications E11.9 ; BPH without urinary obstruction N40.0 ; Human immunodeficiency virus [HIV] disease B20 and Methamphetamine abuse F15.10 [facility] [address] [place], [place] [id number] 06/09/2024 [facility] [address] [place], [place] [id number] 07/24/2024 [facility] [address] [place], [place] [id number] 09/29/2024 [facility] [address] [place], [place] [id number] 10/19/2024 [facility] [address] [place], [place] [id number] 10/26/2024 [facility] [address] [place], [place] [id number] 12/17/2024 [facility] [address] [place], [place] [id number] 03/08/2025 [facility] [address] [place], [place] [id number] 03/08/2025 [facility] [address] [place], [place] [id number] 03/15/2025 [facility] [address] [place], [place] [id number] 03/31/2025 [facility] [address] [place], [place] [id number] 04/02/2025 [facility] [address] [place], [place] [id number] 04/21/2025 [facility] [address] [place], [place] [id number] 04/23/2025 AMALIA ESQUIVEL Assessments Encounter Date Diagnosis (ICD Code) Assessment Notes Treatment Notes Treatment Clinical Notes Section Notes 07/20/2024 Human immunodeficien cy virus [HIV] disease (ICD-10 - B20) The patient will continue the Biktarvy. He is strongly encouraged on the need for perfect compliance with both medications and office appointments to ensure virologic suppression and to help prevent the development of HIV drug resistance. Will check CBC, BMP, LFTs, Lipid panel, CD4 cell ct, and HIV VL. 07/20/2024 Type 2 diabetes mellitus without complications (ICD-10 - E11.9) He is strongly encouraged on compliance with medications. He is advised to check his blood sugars at least daily and bring his glucometer to his next appointment. He is encouraged on a healthy diet and exercise, as able. He awaits an initial appointment with endocrinology. Will check a HgbA1c. 10/13/2024 Human immunodeficien cy virus [HIV] disease (ICD-10 - B20) The patient will continue the Biktarvy. He is applauded on compliance and encouraged to continue. Will check CBC, BMP, LFTs, Lipid panel, CD4 cell ct, and HIV VL. 10/13/2024 Type 2 diabetes mellitus without complications (ICD-10 - E11.9) His diabetes remains poorly controlled. He is encouraged on a low carbohydrate diet and exercise. He will continue the current therapy and is advised on improved compliance. He is encouraged to monitor his blood sugars at home and follow up with his burr filer. Will check a HgbA1c. 03/04/2025 Human immunodeficien cy virus [HIV] disease (ICD-10 - B20) The patient will continue the Biktarvy. He is strongly encouraged on the need for perfect compliance with both medications and office appointments to ensure virologic suppression and to help prevent the development of HIV drug resistance. Will check CBC, BMP, LFTs, Lipid panel, CD4 cell ct, and HIV VL. 03/04/2025 Essential hypertensi on (ICD-10 - I10) His blood pressure remains elevated over multiple office visits. He will continue the current therapy and is advised on improved compliance and drug cessation. Will add norvasc 10 mg daily. He is encouraged to begin checking his blood pressure at home and call if persistently elevated. 04/13/2025 Essential hypertensi on (ICD-10 - I10) His blood pressure remains elevated. He will continue the current therapy and is advised on improved compliance. He is offered and declined intensitication of therapy. 04/13/2025 Paronychia of toe of right foot (ICD-10 - L03.031) The patient is advised on local wound care and is given bactrim DS bid. The patient will call with lack of benefit, change/worsening of symptoms, or any perceived medication side effects. 04/13/2025 Type 2 diabetes mellitus without complications (ICD-10 - E11.9) He will continue the current therapy and is advised on compliance. He will follow up with the burr filer. 03/04/2025 Methamphetamine abus e (ICD-10 - F15.10) He is strongly encouraged on drug cessation. He is encouraged and declined to start rehab. 10/13/2024 rodent exterminator (current) use of insulin (ICD-10 - Z79.4) As above. 07/20/2024 long-term (current) use of insulin (ICD-10 - Z79.4) As above. 07/20/2024 Essential (primary) hypertension (ICD-10 - I10) As above. He will continue the current therapy and is advised on compliance. 10/13/2024 Pure hypercholesterolemia (ICD-10 - E78.00) As above. He will continue the current therapy and is advised on compliance. Will check a lipid panel. 03/04/2025 Type 2 diabetes mellitus without complications (ICD-10 - E11.9) He will continue the current therapy and diet. He will follow up with his burr filer. Will check a HgbA1c. 04/13/2025 BPH without urinary obstruction (ICD-10 - N40.0) His prostate MRI was concerning for prostate cancer and his PSA is going up. He is strongly encouraged to follow up with his urologist. 10/13/2024 Ischemic stroke (ICD -10 - I63.9) As above. He is reminded that a recurrent stroke is increased secondary to methamphetamine use, poorly controlled hypertenion, hyperlipidemia, and diabetes. He is encoruaged to follow up with the neurologist. 03/04/2025 rodent exterminator (current) use of insulin (ICD-10 - Z79.4) As above. 04/13/2025 Human immunodeficien cy virus [HIV] disease (ICD-10 - B20) The patient will continue the Biktarvy. He is applauded on compliance and encouraged to continue. 07/20/2024 Pure hypercholesterolemia (ICD-10 - E78.00) As above. He will continue the current therapy and is encouraged on compliance. Will check a lipid panel. 07/20/2024 Ischemic stroke (ICD -10 - I63.9) As above. He is strongly advised on drug cessation. He is encouraged to follow up with the neurologist. He is encouraged and declined to look into a higher level of care. 10/13/2024 Essential (primary) hypertension (ICD-10 - I10) His blood pressure is poorly controlled today. He will continue the current therapy and is advised on improved compliance. He is offered and declined intensification of therapy. 04/13/2025 Methamphetamine abus e (ICD-10 - F15.10) He is strongly encouraged on drug cessation/reducti on and he has no current interest in rehab. 03/04/2025 Chronic renal impairment, stage 3a (ICD-10 - N18.31) This is chronic and stable to slightly improving. He is on jardiance, ozempic, and an ARB. He is advised on staying well hydrated. He is aware that his renal function is effected by the control of his diabetes, HIV, and hypertension. Will check a BMP. 03/04/2025 Ischemic stroke (ICD -10 - I63.9) He is on maximum medical therapy and will work on compliance and better blood pressure control. He is encouraged on sobriety. He is given an order for a quad cane. He is encouraged to follow up with his neurologist. 10/13/2024 Chronic renal impairment, stage 3a (ICD-10 - N18.31) His renal function is slightly elevated and stable. A recent CT urogram was unremarkable. He is advised that this relates to his drug use, and control of HIV, hypertension, and diabetes. He is already on an ARB and Ozempic. Could consider adding farxiga. 07/20/2024 Mild vascular ruth ia with other behavioral disturbance (ICD-10 - F01.A18) As above. 07/20/2024 Moderate episode of recurrent major depressive disorder (ICD-10 - F33.1) The patient will continue the current therapy which he finds helpful. He is offered and declined an adjustment or referral to mental health. He will call with any change/worsening of mood. 10/13/2024 Moderate episode of recurrent major depressive disorder (ICD-10 - F33.1) The patient will continue the current therapy which he finds helpful. He is offered and declined an adjustment or referral to mental health. He will call with any change/worsening of mood. 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 He is encouraged on moving to a higher level of care which he is considering. 03/04/2025 Impacted cerumen, bilateral (ICD-10 - H61.23) His ears were lavaged bilaterally with good results and no complications. 10/13/2024 Methamphetamine abus e (ICD-10 - F15.10) He is strongly advised on sobriety and is offered and declined referral to rehab. 07/20/2024 Methamphetamine abus e (ICD-10 - F15.10) He continues to downplay this very significant problem. He is advised on drug cessation and rehab and declines. 07/20/2024 Exposure to STD (ICD -10 - Z20.2) The patient is encouraged on safe sex practices. He will start doxycycline for DoxyPEP. Will screen for gonorrhea, chlamydia, and syphilis. 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 This is chronic and stable and appears vascular in nature. He is encouraged and declined to move to a higher level of care. 03/04/2025 BPH without urinary obstruction (ICD-10 - N40.0) He denies any LUTs but has a persistently elevated PSA and a concerning prostate MRI. He is encouraged to follow up with his urologist and have this further evaluated. 03/04/2025 Medically noncomplia nt (ICD-10 - Z91.199) He is encouraged on the need for improved compliance with medications, office appointments, testing, and referrals which currently seems limited by his drug use and dementia. 10/13/2024 BPH without urinary obstruction (ICD-10 - N40.0) He will continue the current therapy and follow up with the urologist for a prostate biopsy. 07/20/2024 Erectile dysfunction due to arterial insufficiency (ICD-10 - N52.01) He is given a refill of cialis. 10/13/2024 Medically noncomplia nt (ICD-10 - Z91.199) He is advised on the very real and potentially immediate health hazards of continued noncompliance with diet, medications, drug use, office appointments, and referrals. 03/04/2025 Food insecurity (ICD -10 - Z59.41) Followup with [employer] regarding food pantry options 03/04/2025 Transportation insecurity (ICD-10 - Z59.82) Followup with [employer] to inquire about transportation vouchers. Plan Of Treatment Pending Test Test Name Order Date EAR IRRIGATION 05/01/2023 Insurance Providers Payer Name Payer Address Payer Phone Subscriber Number Group Number Insured Name Patient Relationship to Insured Coverage Start Date Coverage End Date [employer] [address] [address] [place], [place] [id number] Jas Sanchez Self - patient is the insured Medical (General) History Medical History History ICD Code HIV Erectile dysfunction BPH Cervical DDD Methamphetamine abuse Depression Hyperlipidemia Melanoma Hypertension Diabetes mellitus type 2 Macular degeneration Right carotid artery stenosis CVA Medical noncompliance Chronic renal insufficiency Surgical History Surgery Date(Month/Year) WLE of melanoma Cataract surgery Right carotid stent
--- OUTSIDE RECORDS SUMMARY | 2025-06-08 07:33 | XMS_ITS | Clinical Summary ---
Author Organization [facility] Address [address] [place] [address] Care Team Providers Care Entertainment Director Name Role Phone Tu Mcginnis MD Primary Care Provider [phone] Singer Edel MD, Nadeem Fernandes Unavailable [phone] Domingo Ureña MD Unavailable Manny Cormier MD Unavailable [phone] Allergies No known active allergies Medications tamsulosin [...] Active pen needle, diabetic 32 gauge x 5/32 needle 1 each daily 07/23/20 22 Active [...] day for 7 doses 7 tablet 05/08/20 24 Active Additional Information Patient not taking.Reported on [...] 24 Active blood-glucose meter,continuo us (Dexcom G7 It Risk Analyst) misc Use G7 life skills educator to check blood sugars continuously 1 each 09/22/20 24 Active glucagon 1 mg/0.2 mL auto-injectorI ndications:hyp oglycemic disorder Inject 1 mg under the skin as needed (severe hypoglycemia, may repeat in 15 mins if needed with new device.) 0.6 mL 3 09/22/20 24 Active blood-glucose meter,continuo us (Dexcom G7 It Risk Analyst) miscIndication s:Type 2 diabetes mellitus with hyperglycemia, unspecified whether assisted insulin use (HCC) 1 kit daily Lot [id number] 1 each 09/23/20 24 Active dorzolamide (TRUSOPT) 2 % ophthalmic solution 10/06/20 24 Active doxycycline hyclate 100 mg capsule 09/21/20 24 Active traZODone (DESYREL) 50 mg tablet 09/29/20 24 Active gabapentin (NEURONTIN) 300 mg capsule 1 [...] Active miscellaneous medical supply (Blood Pressure Cuff) misc Use to check blood pressure 1-2 times [...] 2 diabetes mellitus with hyperglycemia, unspecified whether assisted insulin use (HCC) Change every 10 days [...] 01/16/2024 Assessment & Plan (01/17/2024 11:02 AM FORKLIFT OPERATOR): High-grade symptomatic right internal carotid artery stenosis. [...] duplex. Assessment & Plan (01/03/2024 10:00 AM FORKLIFT OPERATOR): Impression: CT head and neck was performed [...] management. Assessment & Plan (01/17/2024 11:02 AM FORKLIFT OPERATOR): Hypertension chronic and controlled. Continue current medical management. Assessment & Plan (01/03/2024 9:38 AM FORKLIFT OPERATOR): Impression: Chronic stable. Plan: Continue losartan. Mixed hyperlipidemia 01/03/2024 Assessment & Plan (04/21/2025 9:47 AM CDT): Hyperlipidemia chronic controlled. Continue Lipitor. Assessment & Plan (01/17/2024 11:02 AM FORKLIFT OPERATOR): Hyperlipidemia chronic and controlled. Continue statin therapy. Assessment & Plan (01/03/2024 9:38 AM FORKLIFT OPERATOR): Impression: Chronic stable. Plan: Continue Lipitor AMS (altered mental status) 11/10/2023 DDD (degenerative disc disease), cervical 2021 Benign prostatic hyperplasia with urinary freque ncy 05/10/2022 Methamphetamine abuse 05/10/2022 Moderate episode of recurrent major depressive d isorder 02/06/2022 Human immunodeficiency virus (HIV) disease 10/19 /2021 Acute metabolic encephalopathy 01/18/2021 Major depressive disorder, single episode, moder ate 09/26/2007 Asymptomatic varicose veins 12/05/2006 Osteoarthritis 12/05/2006 Encounters Date Type Department Care Team Description 04/15/2025 2:45 PM CDT Office Visit [facility] V[facility] and Vein Surgery [address] [place] [address] Manny Cormier MD Bilateral carotid artery stenosis (Primary Dx); Mixed hyperlipidemia; Primary hypertension 04/15/2025 2:15 PM CDT - 04/15/2025 11:59 PM CDT Hospital Encounter [facility] Building 2 Vascular [address] [place] [address] Aftercare following surgery of the circulatory system Discharge Disposition: Discharge to home or self care from Last 3 Months Immunizations Immunization Administration Dates Next Due H1N1 Inj 07/28/2013 Hep A, Adult 05/10/2022,10/12/2021 Heplisav-b (Hepatitis B) 05/10/2022,10/12/2021 Influenza, Quadrivalent, Hig h Dose, Preservative Free, Intrr 08/30/2022,10/12/2021 Influenza, Quadrivalent, Spl it, Intramuscular 08/15/2020 Influenza, Trivalent, High D ose, Split, Preservative Free, Intramuscular 11/16/2019,01/20/2019,10/01/2017,07/27 Pneumococcal Conjugate PCV 13 11/17/2013 Pneumococcal Polysaccharide PPV23 02/28/2016 Td, adsorbed 03/22/2007 Surgical History Surgery Date Site/Laterality Comments MELANOMA RESECTION Wide local excision of melanoma CATARACT EXTRACTION CAROTID STENT 02/11/2024 Right RT TCAR 02/11/24 Medical History Medical History Date Comments HIV (human immunodeficiency virus infection) (HCC) 2021 Erectile dysfunction Depression Hyperlipidemia HTN (hypertension) DM2 (diabetes mellitus, type 2) (HCC) IDDM Macular degeneration GERD (gastroesophageal reflux disease) PRN meds. TIA (transient ischemic attack) 10/2023 x1; Still has balance issues. Carotid stenosis 10/2023 Right. Mood swings Teeth missing Family History Medical History Relation Name Comments Heart disease Father Diabetes Mother Relation Name Status Comments Father Mother Social History Tobacco Use Types Packs/Day Years Used Date Smoking Tobacco: Never Passive Smoke Exposure: Past Smokeless Tobacco: Never Tobacco Cessation:Counseling Given: Not Answered [facility] Utilities Answer Date Recorded In the past [...] week 05/08/2024 How often do you attend hoahaoism or pentecostal serv ices? Never 05/08/2024 Do you belong to any clubs o r organizations such as hoahaoism groups, unions, fraternal or athletic groups, or [...] place to sleep or slept in a assisted (including now)? No 02/12/2024 Housing Stability Vital Sign Answer Cornelio e Recorded In the last 12 months, was t here a time when you were not able to pay the mortgage or rent on time? No 05/08/2024 In the past 12 months, how m any times have you moved where you were living? 1 05/08/2024 At any time in the past 12 m [facility], were you homeless or living in a assisted (including now)? No 05/08/2024 Personal Safety Answer Date Recorded Have you ever been in or are you currently in a harmful physical or emotional relationship or is someone making you feel afraid or unsafe? Denies 05/07/2024 Sex and Gender Information Value Date Recorded Sex Assigned at Not on file Legal Sex Male 8:06 AM FORKLIFT OPERATOR Gender Identity Not on file Sexual Orientation Not on file Obstetrics History Last Filed Vital Signs Vital Sign Reading Time Taken Comments Blood Pressure 163/76 04/15/2025 2:50 PM CDT Pulse 72 04/15/2025 2:50 PM CDT Temperature 36.2 C (97.1 F) 01/26/2025 1:34 PM FORKLIFT OPERATOR Respiratory Rate 18 04/15/2025 2:50 PM CDT Oxygen Saturation 97% 04/15/2025 2:50 PM CDT Inhaled Oxygen Concentration - - Weight 73.9 kg (163 lb) 04/15/2025 2:50 PM CDT Height 172.7 cm (5' 8) 04/15/2025 2:50 PM CDT Body Mass Index 24.78 04/15/2025 2:50 PM CDT Plan of Treatment Health Maintenance Due Date Last Done Comments HLA B 5701 Typing 1945 T Spot (quantiferon gold) 1945 Dilated Eye Exam 1945 Foot Exam 1945 HIV+ Chlamydia and Gonorrhea Screening (Rectal) 1958 HIV + Chlamydia and Gonorrhe a Screening (Urine) 1960 HIV+ Chlamydia and Gonorrhea Screening (Throat) 1960 Hepatitis C Screening 1960 RPR Screening 1960 G6PD 1965 Zoster Vaccine (1 of 2) 1966 Osteoporosis Screening-Bone Density Scan 1997 DTaP/Tdap/Td Vaccine (1 - Tdap) 03/23/2007 7 Well Visit 65+ 2012 Proteinuria screening Urinalysis (UA) 05/07/2025 05/07/2024, 02/15/2024, 02/15/2024, Additional history exists Fall Risk Assessment 05/08/2025 05/08/2024 Lipid Panel 05/08/2025 05/08/2024, 10/25, 08/14/2022, Additional history exists eGFR 05/08/2025 05/08/2024, 04/25, 03/02/2024, Additional history exists Influenza Vaccine (#1) 2025 , 10/12/2021, 08/15/2020, Additional history exists Albumin Creatinine Ratio, Urine 09/22/2025 Depression Screening 01/26/2026 01/26/2025 Hemoglobin A1C 01/26/2026 01/26/2025, 08/26, 01/31/2024, Additional history exists Pneumococcal vaccine 65+ Completed 02/28/2016, 10/26 Hepatitis A Vaccines Completed 05/10/2022, 10/12/20 21 Hepatitis B Vaccines Completed 05/10/2022, 10/12/20 21 Medical Devices Implanted Type Area Banquet Houseperson Device Identifier Shelf Expiration Date Model / Serial / Lot [facility] En[employer] Flex 8mm .065in 40mm 57cm Delivery System Angle Tip [id number] - [id number] Implanted:Qty: 1 on 02/11/2024 by Manny Cormier MD at [facility] Stent Right: Carotid [employer] [facility] [employer] [id number] 07/25/2026 SR-0840-[id number] S / / [id number] Procedures Procedure Name Priority Date/Time Associated Diagnosis Comments US CAROTIDS DUPLEX BILATERAL Schedule Routine, Read Routine (OP Routine) 04/15/2025 2:57 PM CDT Aftercare following surgery of the circulatory system POCT HEMOGLOBIN A1C Routine 01/26/2025 1 :45 PM FORKLIFT OPERATOR Type 2 diabetes mellitus with hyperglycemia, unspecified whether assisted insulin use (HCC) ALBUMIN CREATININE RATIO, URINE Routine 09/22/2024 4:35 PM CDT Type 2 diabetes mellitus with hyperglycemia, unspecified whether assisted insulin use (HCC) EGFR Routine 05/08/2024 5:21 [...] Carotid Duplex Ultrasound Report Patient Name: ELDER BRAGAAylin : 1945 (79y 3m) Study Date: 04/15/2025 2:28:08 PM Gender: M Stone Product Fabricator: Elida Paniagua Provider: MANNY CORMIER Quality: Adequate [...] DIST CCA INTO ICA Rt Stent Prx [place] PSV 106/13 cm/sec Rt Stent Prx PSV 85/8 cm/sec Rt Stent Mid PSV 69/16 cm/sec Rt Stent Dst PSV 60/13 cm/sec Rt Stent Dst [place] PSV 71/12 cm/sec FINDINGS: Rt Common Carotid [...] Study Date: 04/15/2025 2:28:08 PM Gender: M Stone Product Fabricator: Elida Paniagua Provider: MANNY CORMIER Quality: Adequate [...] DIST CCA INTO ICA Rt Stent Prx [place] PSV 106/13 cm/sec Rt Stent Prx PSV 85/8 cm/sec Rt Stent Mid PSV 69/16 cm/sec Rt Stent Dst PSV 60/13 cm/sec Rt Stent Dst [place] PSV 71/12 cm/sec FINDINGS: Rt Common Carotid [...] Silvio Cormier MD 04/16/2025 7:29:39 AM CDT Manny Cormier MD IM US PROCEDURES Final Re sult * POCT hemoglobin A1c (01/26/2025 1:45 PM FORKLIFT OPERATOR) Pathologist [facility] Hemoglobin A1C, POC 7.0 4.0 - 5.6 % Blood 01/26/2025 1:45 PM FORKLIFT OPERATOR Simba Coker MD POINT OF CARE TEST ORDERABLES F inal Result * (ABNORMAL) Albumin Creatinine Ratio, Urine (09/22/2024 4:35 PM CDT) Pathologist [facility] Albumin Ur 45.5 mg/L Comment: Interpretive Data No reference range established. Current interpretive data was last revised 2019. Creatinine Ur 138.6 mg/dL NAHEED REYNOSO Comment: Interpretive Data No reference range established. Current interpretive data was last revised 2019. Albumin Creatinine Ratio, Ur 33(H) 1 - 29 mg/g NAHEED REYNOSO Urine 09/22/2024 4:35 PM CDT 09/22/2024 7:50 PM CDT us Simba Coker MD LAB URINE ORDERABLES Final Resu lt NAHEED [id number] [address] Department [place] [address] * (ABNORMAL) eGFR (05/08/2024 5:21 AM CDT) [...] of Race in Diagnosing Kidney Disease, JASN 202). The CKD-EPI equation should not be used for patients with unstable renal function and has not been validated in children and those over 70. Current interpretive data was last reviewed 2021. Testing performed by: [facility], [address] [place] [address]., [id number] Blood 05/08/2024 5:21 AM CDT 05/08/2024 5:58 AM CDT us Rosa Stephenson MD LAB BLOOD ORDERABLES Fin al Result NAHEED [address] Department of Laboratories [place], [place] [id number] * (ABNORMAL) Lipid panel (05/08/2024 5:21 AM CDT) [facility] Signature Cholesterol 108 30 - 199 mg/dL Comment: [...] last revised on 2018. Testing performed by: [address] [address] Triglycerides 85 <=149 mg/dL NAHEED Comment: Interpretive [...] last revised on 2018. Testing performed by: [address] [address] HDL 33(L) >=40 mg/dL NAHEED Comment: Interpretive [...] last revised on 2018. Testing performed by: [address] [address] LDL, calculated 58 <=129 mg/dL NAHEED TOURE Comment: Interpretive Data Ages [...] last revised on 2018. Testing performed by: [address] [address] Non-HDL Cholesterol 75 mg/dL NAHEED TOURE Comment: [...] last revised on 2018. Testing performed by: [address] [address] Chol/HDL ratio 3 NAHEED TOURE Comment:Testing performed by : [address] [address] Blood 05/08/2024 5:21 AM CDT 05/08/2024 5:58 AM CDT us Carin Gross NP LAB BLOOD ORDERABLES Final Result [facility]ED TOURE [address] Department [place] [address] * (ABNORMAL) Urinalysis reflex to microscopic and culture Urine (05/07/2024 8:45 AM CDT) Color, ur Straw Yellow Comment:Testing performed by : [address] [address] Clarity, ur Clear Clear NAHEED Comment:Testing performed by : [address], [place]., [address] Specific gravity, ur 1.008 1.003 - 1.030 NAHEED Comment:Testing performed by : [address], [place]., [address] pH, urine 5.5 NAHEED Comment: Interpretive Data U rine pH is affected by diet, medications, systemic acid-base disturbances, and renal tubular function. pH may affect urinary stone formation. For example, urine pH below 6.0 may help reduce the tendency for calcium phosphate stones and pH greater than 6.0 may reduce the tendency for uric acid stone formation. Source: [facility] Current Interpretive Data was last revised on 2017 Testing performed by: [address] [address] Protein, ur ql Negative Negative NAHEED Comment:Testing performed by : [address] [address] Glucose, ur ql 1+(A) Negative NAHEED Comment:Testing performed by : [address] [address] Ketones, ur Negative Negative NAHEED Comment:Testing performed by : [address] [address] Bilirubin, ur Negative Negative NAHEED Comment:Testing performed by : [address] [address] Blood, ur Negative Negative NAHEED Comment:Testing performed by : [address] [address] Urobilinogen, ur <2.0 <2.0 mg/dL NAHEED Comment:Testing performed by : [address], [place]., [address] Nitrite, ur Negative Negative NAHEED Comment:Testing performed by : [address] [address] Leukocyte esterase, ur Negative Negative NAHEED TOURE Comment:Testing performed by : [facility], [address] [place] [address]., [address] UA reflex comment Reflex conditions for microscopic UA and culture not met. NAHEED TOURE Comment:Testing performed by : [facility], [address] [place] [address]., [address] Urine 05/07/2024 8:45 AM CDT 05/07/2024 8:50 AM CDT us Joe Ambriz DO LAB MICROBIOLOGY - GENERAL ORD ERABLES Final Result NAHEED TOURE [address] Department [place] [address] from Last 3 Months or Most Recently Relevant to Health Maintenance Insurance [facility] MEDICARE GOLD T MEDICARE GOLD [employer] MEDICARE GOLD Advance Directives For more information, please contact: [phone] * LIMITED - No CPR (Latest Code [...] 11:39 AM 02/18/2024 9:15 PM Care Teams Entertainment Director Relationship Specialty Start Date End Date Tu Mcginnis MD [address] [place] [address] PCP - General Internal Medicine 07/31/23 [place] [address] [facility] [address] [place] [address] 07/31/23 Domingo Ureña MD [address] [facility] [address] [place] [address] [address] Consulting Physician Cardiology 01/31/24 Manny Cormier MD [address] [facility] [address] [address] Surgeon Surgery 01/31/24
--- OUTSIDE RECORDS SUMMARY | 2025-06-08 07:33 | XMS_ITS | Clinical Summary ---
Author Organization [facility] Address [address] [place] [address] Care Team Providers Care Market Research Worker Name Role Phone Unavailable Primary Care Provider Unavailabl e Source Comments [facility] [employer],non-owned Affiliates and Associated Physician Practices is amultiple site organization consisting of ambulatory clinics and hospital sitesin [place], [place], [place] and [place]. This disclosure is being madepursuant to the Care Everywhere program and may not contain all information available regarding this patient. Last updated 18.[facility] [employer] Social History Tobacco Use Types Packs/Day Years Used Date Smoking Tobacco: Never Assessed Sex and Gender Information Value Date Recorded Sex Assigned at Not on file Legal Sex Male 6:10 AM CONTRACT COORDINATOR Gender Identity Not on file Sexual Orientation Not on file Last Filed Vital Signs Vital Sign Reading Time Taken Comments Blood Pressure 171/82 11/18/2016 8:00 PM CONTRACT COORDINATOR Pulse 58 11/18/2016 9:30 PM CONTRACT COORDINATOR Temperature - - Respiratory Rate 27 11/18/2016 9:30 PM CONTRACT COORDINATOR Oxygen Saturation 100% 11/18/2016 9:30 PM CONTRACT COORDINATOR Inhaled Oxygen Concentration - - Weight 77.1 kg (170 lb) 11/18/2016 7:41 PM CONTRACT COORDINATOR Height 175.3 cm (5' 9) 11/18/2016 7:41 PM CONTRACT COORDINATOR Body Mass Index 25.1 11/18/2016 7:41 PM CONTRACT COORDINATOR Plan of Treatment Health Maintenance Due Date Last Done Comments HEPATITIS C SCREENING 12/25/1965 DTAP/TDAP/TD VACCINES (1 - Tdap) 1966 PNEUMOCOCCAL VACCINE 50+ (1 of 1 - PCV) 1997 ZOSTER VACCINE (1 of 2) 1997 Respiratory Syncytial Virus (RSV) Vaccine Pt: or over 60 yrs (1 - 1-dose 75+ series) 2022 COVID-19 VACCINE ( - 2023-2 5 season) 2024 DEPRESSION SCREENING 11/25/2024 INFLUENZA VACCINE (#1) 2025 HEPATITIS B VACCINE Aged Out No longe r eligible based on patient's age to complete this topic HIB VACCINE Aged Out No longer eligi ble based on patient's age to complete this topic HPV VACCINE Aged Out No longer eligi ble based on patient's age to complete this topic MENINGOCOCCAL (Group B) VACC INE SHARED DECISION-MAKING Aged Out No longer eligibl e based on patient's age to complete this topic MENINGOCOCCAL GROUPS A/C/Y/W VACCINE Aged Out No longer eligible b ased on patient's age to complete this topic
== END 2025-06-08 07:29 | disposition home or self-care (01) ==
PROVIDERS: Visit Provider Urology
DX: C61 Malignant neoplasm of prostate (principal)
CPT/HCPCS: 78815; A9596